=== PATIENT | female | born 1965 | race Hispanic/Latino ===

== ENCOUNTER 2021-09-18 15:16 | Emergency (ER) | payer BC ==
--- OUTSIDE RECORDS SUMMARY | 2021-09-18 15:20 | XMS REPORT | Continuity of Care Document ---
:1965 Author Organization [facility] t Address [facility] [place] [address] Care Team Providers Name Role Phone PCP, DOES NOT HAVE A Primary Care Physician Unavailable MIGUEL Attending Clinician Unavailable MIGUEL Attending Clinician Unavailable EDEMEREBECCANG Attending Clinician Unavailable Only, Db Test Attending Clinician Unavailable William PARISI Attending Clinician WILLIAM Attending Clinician Unavailable Doctor Unassigned, Name Attending Clinician Unavailable Alessandra_Deborah Attending Clinician Unavailable Lab, Fam Pob I Attending Clinician Unavailable Anene CYBER SECURITY INSTRUCTOR Attending Clinician ANENE Attending Clinician Unavailable Shield Attending Clinician Unavailable Prabhjot Admitting Clinician Unavailable Shield Admitting Clinician Unavailable Payers Payer Name Policy Type Policy Number Effective Date Expiration Date S ource [facility] - [id number] 2021 00:00:00 OUT OF STATE [employer] - CHOICE [id number] 2012 00:00:00 (POS II) Problems Condition Condition Condition Status Onset Resolution Last Treating Co mments Source Name Details Category Date Date Treatment Clinician Date Type 2 Type 2 Problem Active 2016-03 [place] diabetes Diabetes 1-16 da mellitus Mellitus 00:00: Medica l without without 00 Group complicati Complicati on on Elevated Elevated Disease Active Unive rs ferritin ferritin 6-15 ity of 00:00: [address] Elevated Elevated Disease Active Unive rs TSH TSH 6-15 ity of 00:00: [address] Elevated Elevated Disease Active Unive rs serum GGT serum GGT 6-15 ity of level level 00:00: Medical Branch Fatty Fatty Disease Active Univers liver liver 6-15 ity of 00:00: Medical Branch Numbness Numbness Disease Active Unive rs 6-12 ity of 00:00: Medical Branch Pain of Pain of Disease Active Univers right right 6-12 ity of upper upper 00:00: [place] extremity extremity 00 Medi kenna Branch Elevated Elevated Disease Active Unive rs liver liver 6-12 ity of enzymes enzymes 00:00: [place] [facility] Elevated Elevated Disease Active Unive rs BP BP 6-12 ity of 00:00: Medical Branch Decreased Decreased Disease Active Uni vers strength strength 6-12 ity of 00:00: [place] [facility] Obesity Obesity Disease Active Univers (BMI (BMI 6-09 ity of 30-39.9) 30-39.9) 00:00: [place] [facility] Viral Viral Problem Active [place] myalgia [facility] Overweight Overweight Problem Active M [facility] Acute Acute Problem Active [place] sinusitis Sinusitis [facility] Tracheopha Tracheopha Problem Active M [facility] ryngitis ryngitis [facility] Upper Upper Problem Active [place] respirator Respirator da y y Medical infection Infection Grou p Congestive Congestive Problem Active M [facility] non-allerg Non-allerg da ic ic Medical rhinitis Rhinitis Group Allergic Allergic Problem Active [place] [facility] rhinitis Rhinitis [facility] Stomatitis Stomatitis Problem Active [facility] Wrist Wrist Problem Active [place] joint pain [facility] Multiple Multiple Problem Active [place] [facility] joint pain [facility] Allergies, Adverse Reactions, Alerts Allergy Allergy Status Severity Reaction(s) Onset Inactive Treating Comm ents Source Name Type Date Date Clinician NO KNOWN Drug Active Univers ALLERGIE Class ity of S [place] [facility] Social History Social Habit Start Date Stop Date Quantity Comments Source History SDOH University o f Alcohol Frequency [place] M ed[facility] History SDOH University o f Alcohol Std [place] [facility] Drinks Branch History SDOH University o f Alcohol Binge [place] [facility] Exposure to Yes University of SARS-CoV-2 [place] [facility] (event) Branch Alcohol intake 2016-09-11 2016-09-11 Current drinker Unive rsity of 00:00:00 00:00:00 of alcohol [place] [facility] (finding) Branch Tobacco use and 2016-09-08 2016-09-08 Never used Universit y of exposure 00:00:00 00:00:[address] [facility] Alcohol Comment 2016-09-08 2016-09-08 social Universit y of 00:00:00 00:00:[address] [facility] Sex [birth year] At [birth year] Universit y of 00:00:00 00:00:[address] [facility] Smoking Status Start Date Stop Date Source Former Smoker [facility] Never smoker [facility] Medications Ordered Filled Start Stop Current Ordering Indication Dosage Frequency Signature Comments Components Source Medication Medication Date Date Medication? Clinician (SIG) Name Name fexofenadin Yes [id number] 180mg Take 1 Univers e 180 mg 2-01 tablet by ity of tablet 00:00: mouth 2 (two) Medical times Branch daily. benzonatate Yes [id number] 200mg Take 1 Univers 200 mg 2-01 capsule by ity of capsule 00:00: mouth 3 [place] (three) Medical times Branch daily as needed for Cough. fexofenadin Yes [id number] 180mg Take 1 Univers e 180 mg 2-01 tablet by ity of tablet 00:00: mouth 2 (two) Medical times Branch daily. benzonatate Yes [id number] 200mg Take 1 Univers 200 mg 2-01 capsule by ity of capsule 00:00: mouth 3 [place] (three) Medical times Branch daily as needed for Cough. fexofenadin Yes [id number] 180mg Take 1 Univers e 180 mg 2-01 tablet by ity of tablet 00:00: mouth 2 (two) Medical times Branch daily. benzonatate Yes [id number] 200mg Take 1 Univers 200 mg 2-01 capsule by ity of capsule 00:00: mouth 3 (three) Medical times Branch daily as needed for Cough. fexofenadin Yes [id number] 180mg Take 1 Univers e 180 mg 2-01 tablet by ity of tablet 00:00: mouth 2 [place] (two) Medical times Branch daily. benzonatate Yes [id number] 200mg Take 1 Univers 200 mg 2-01 capsule by ity of capsule 00:00: mouth 3 [place] 00 (three) Medical times Branch daily as needed for Cough. traZODONE Yes 50mg 50 mg. Univer s 50 mg 1-16 Take 1-2 ity of tablet 20:10: tablets [place] 16 PRN Medical insomnia Branch traZODONE 2019-0 Yes 50mg 50 mg. Univer s 50 mg 1-16 Take 1-2 ity of tablet 14:10: tablets [place] 16 PRN Medical insomnia Branch traZODONE 2018-0 Yes 50mg 50 mg. Univer s 50 mg 1-16 Take 1-2 ity of tablet 14:10: tablets [place] 16 PRN Medical insomnia Branch traZODONE 0 Yes 50mg 50 mg. Univer s 50 mg 1-16 Take 1-2 ity of tablet 14:10: tablets [place] 16 PRN Medical insomnia Branch fluticasone Yes [id number] 1{spray Use 1 Univers 50 1-16 } [place] in ity of mcg/actuati 00:00: each [place] on nasal 00 nostril 2 Medica l spray (two) Branch times daily. benzonatate Yes [id number] 100mg Take 1 Univers (TESSALON 1-16 capsule by ity of PERLES) 100 00:00: mouth 3 [place] as mg capsule 00 (three) Medica l times Branch daily. naproxen Yes [id number] 500mg Take 1 Un jayro 500 mg 1-16 tablet by ity of tablet 00:00: mouth 2 [place] [address] (two) Medical times Branch daily with meals. fluticasone Yes [id number] 1{spray Use 1 Univers 50 1-16 } [place] in ity of mcg/actuati 00:00: each [place] on nasal 00 nostril 2 Medica l spray (two) Branch times daily. benzonatate 2018- Yes [id number] 100mg Take 1 Univers (TESSALON 1-16 capsule by ity of PERLES) 100 00:00: mouth 3 [place] as mg capsule 00 (three) Medica l times Branch daily. naproxen Yes [id number] 500mg Take 1 Un jayro 500 mg 1-16 tablet by ity of tablet 00:00: mouth 2 [place] 00 (two) Medical times Branch daily with meals. fluticasone 2019-0 Yes [id number] 1{spray Use 1 Univers 50 1-16 } [place] in ity of mcg/actuati 00:00: each [place] on nasal 00 nostril 2 Medica l spray (two) Branch times daily. benzonatate 2019-0 Yes [id number] 100mg Take 1 Univers (TESSALON 1-16 capsule by ity of PERLES) 100 00:00: mouth 3 [place] as mg capsule 00 (three) Medica l times Branch daily. naproxen 2019-0 Yes [id number] 500mg Take 1 Un jayro 500 mg 1-16 tablet by ity of tablet 00:00: mouth 2 [place] (two) Medical times Branch daily with meals. fluticasone 2019-0 Yes [id number] 1{spray Use 1 Univers 50 1-16 } [place] in ity of mcg/actuati 00:00: each [place] on nasal 00 nostril 2 Medica l spray (two) Branch times daily. benzonatate 2019-0 Yes [id number] 100mg Take 1 Univers (TESSALON 1-16 capsule by ity of PERLES) 100 00:00: mouth 3 [place] as mg capsule 00 (three) Medica l times Branch daily. naproxen 2019-0 Yes [id number] 500mg Take 1 Un jayro 500 mg 1-16 tablet by ity of tablet 00:00: mouth 2 [place] (two) Medical times Branch daily with meals. DULoxetine 2019-0 Yes 60mg Take 60 mg U nivers 60 mg 1-12 by mouth ity of capsule 00:00: daily. [place] [address] Medical Branch DULoxetine 2019-0 Yes 60mg Take 60 mg U nivers 60 mg 1-12 by mouth ity of capsule 00:00: daily. [place] [facility] DULoxetine 2019-0 Yes 60mg Take 60 mg U nivers 60 mg 1-12 by mouth ity of capsule 00:00: daily. [place] [address] Medical Branch DULoxetine 2019-0 Yes 60mg Take 60 mg U nivers 60 mg 1-12 by mouth ity of capsule 00:00: daily. [place] [address] Medical Branch metformin 2019-0 Yes 500mg Take 500 Uni vers ER 500 mg 1-07 mg by ity of 24 hr 00:00: mouth [place] tablet 00 daily. Medical Branch lisinopril 2019-0 Yes 20mg Take 20 mg U nivers 20 mg 1-07 by mouth ity of tablet 00:00: daily. Medical Branch levothyroxi Yes 50ug Take 50 Uni vers ne 50 mcg 1-07 mcg by ity of tablet 00:00: mouth [place] 00 every Medical morning. Branch metformin Yes 500mg Take 500 Uni vers ER 500 mg 1-07 mg by ity of 24 hr 00:00: mouth [place] tablet 00 daily. Medical Branch lisinopril Yes 20mg Take 20 mg U nivers 20 mg 1-07 by mouth ity of tablet 00:00: daily. [place] 00 Medical Branch levothyroxi Yes 50ug Take 50 Uni vers ne 50 mcg 1-07 mcg by ity of tablet 00:00: mouth [place] 00 every Medical morning. Branch metformin Yes 500mg Take 500 Uni vers ER 500 mg 1-07 mg by ity of 24 hr 00:00: mouth [place] tablet 00 daily. Medical Branch lisinopril Yes 20mg Take 20 mg U nivers 20 mg 1-07 by mouth ity of tablet 00:00: daily. [place] [facility] levothyroxi Yes 50ug Take 50 Uni vers ne 50 mcg 1-07 mcg by ity of tablet 00:00: mouth [place] 00 every Medical morning. Branch metformin Yes 500mg Take 500 Uni vers ER 500 mg 1-07 mg by ity of 24 hr 00:00: mouth [place] tablet 00 daily. Medical Branch lisinopril Yes 20mg Take 20 mg U nivers 20 mg 1-07 by mouth ity of tablet 00:00: daily. [place] [facility] levothyroxi Yes 50ug Take 50 Uni vers ne 50 mcg 1-07 mcg by ity of tablet 00:00: mouth [place] 00 every Medical morning. Branch atorvastati 2017-03 Yes 10mg Take 10 mg Univers n 10 mg 1-03 by mouth ity of tablet 00:00: at [place] 00 bedtime. Medical Branch atorvastati 2017-03 Yes 10mg Take 10 mg Univers n 10 mg 1-03 by mouth ity of tablet 00:00: at [place] 00 bedtime. Medical Branch atorvastati 2017-03 Yes 10mg Take 10 mg Univers n 10 mg 1-03 by mouth ity of tablet 00:00: at [place] 00 bedtime. Medical Branch atorvastati 2018-1 Yes 10mg Take 10 mg Univers n 10 mg 1-03 by mouth ity of tablet 00:00: at [place] 00 bedtime. Medical Branch ibuprofen 2017-0 Yes 400mg Take 2 Unive rs (MOTRIN IB) 6-09 tablets by it y of 200 mg 00:00: mouth [place] tablet 00 every 6 Medical (six) Branch hours as needed for Pain (scale 1-3) for up to 30 doses. cyclobenzap 2017-0 Yes 10mg Take 1 Univ ers rine 10 mg 6-09 tablet by ity of tablet 00:00: mouth 2 [place] 00 (two) Medical times Branch daily as needed for Muscle Spasms for up to 10 doses. ibuprofen 2017-0 Yes 400mg Take 2 Unive rs (MOTRIN IB) 6-09 tablets by it y of 200 mg 00:00: mouth [place] tablet 00 every 6 Medical (six) Branch hours as needed for Pain (scale 1-3) for up to 30 doses. cyclobenzap 2017-0 Yes 10mg Take 1 Univ ers rine 10 mg 6-09 tablet by ity of tablet 00:00: mouth 2 [place] 00 (two) Medical times Branch daily as needed for Muscle Spasms for up to 10 doses. ibuprofen 2017-0 Yes 400mg Take 2 Unive rs (MOTRIN IB) 6-09 tablets by it y of 200 mg 00:00: mouth [place] tablet 00 every 6 Medical (six) Branch hours as needed for Pain (scale 1-3) for up to 30 doses. cyclobenzap 2017-0 Yes 10mg Take 1 Univ ers rine 10 mg 6-09 tablet by ity of tablet 00:00: mouth 2 [place] 00 (two) Medical times Branch daily as needed for Muscle Spasms for up to 10 doses. ibuprofen 2017-0 Yes 400mg Take 2 Unive rs (MOTRIN IB) 6-09 tablets by it y of 200 mg 00:00: mouth [place] tablet 00 every 6 Medical (six) Branch hours as needed for Pain (scale 1-3) for up to 30 doses. cyclobenzap 2017-0 Yes 10mg Take 1 Univ ers rine 10 mg 6-09 tablet by ity of tablet 00:00: mouth 2 [place] 00 (two) Medical times Branch daily as needed for Muscle Spasms for up to 10 doses. Amitiza 24 Amitiza 24 No 1capsul BID Amitiza 24 [place] mcg capsule mcg capsule e(s) mcg d a Take 1 Take 1 capsule Medical capsule capsule Take 1 Group twice a day twice a day capsule by oral by oral twice a route. route. day by oral route. atorvastati atorvastati No atorvastat [place] n 10 mg n 10 mg in 10 mg da tablet TAKE tablet TAKE tablet Medical 1 TABLET BY 1 TABLET BY TAKE 1 Group MOUTH ONCE MOUTH ONCE TABLET BY DAILY DAILY MOUTH ONCE DAILY atorvastati atorvastati No atorvastat [place] n calcium n calcium in calcium da 10 mg tabs 10 mg tabs 10 mg tabs Medical Group Bactrim DS Bactrim DS No 1 Q12H Bactrim DS [place] 800 mg-160 800 mg-160 800 mg-160 da mg tablet mg tablet mg tablet Medical Take 1 Take 1 Take 1 Group tablet tablet tablet every 12 every 12 every 12 hours by hours by hours by oral route oral route oral route for 10 for 10 for 10 days. days. days. duloxetine duloxetine No duloxetine [place] 60 mg 60 mg 60 mg da capsule,del capsule,del capsule,de Medical ayed ayed layed Group release release release Take 1 Take 1 Take 1 capsule capsule capsule every day every day every day by oral by oral by oral route. route. route. fluconazole fluconazole No fluconazol [place] 150 mg tabs 150 mg tabs e 150 mg da tabs Medical Group IBU 800 mg IBU 800 mg No 1 TID IBU 800 mg [place] tablet Take tablet Take tablet da 1 tablet 3 1 tablet 3 Take 1 M edical times a day times a day tablet 3 Group by oral by oral times a route for route for day by 10 days. 10 days. oral route for 10 days. Keflex 500 Keflex 500 No 1capsul Q6H Keflex 500 [place] mg capsule mg capsule e(s) mg capsule da Take 1 Take 1 Take 1 Medical capsule capsule capsule Group every 6 every 6 every 6 hours by hours by hours by oral route oral route oral route for 7 days. for 7 days. for 7 days. levothyroxi levothyroxi No levothyrox [place] ne 50 mcg ne 50 mcg ine 50 mcg da tablet TAKE tablet TAKE tablet Medical 1 TABLET BY 1 TABLET BY TAKE 1 Group MOUTH ONCE MOUTH ONCE TABLET BY DAILY DAILY MOUTH ONCE DAILY levothyroxi levothyroxi No levothyrox [place] ne sodium ne sodium ine sodium da 50 mcg tabs 50 mcg tabs 50 mcg Medical tabs Group losartan losartan No losartan [place] 100 mg 100 mg 100 mg da tablet Take tablet Take tablet Medical 1 tablet by 1 tablet by Take 1 Group mouth once mouth once tablet by daily daily mouth once daily Lotemax SM Lotemax SM No Lotemax SM [place] 0.38 % eye 0.38 % eye 0.38 % eye da gel drops gel drops gel drops Medical Group metformin metformin No metformin [place] ER 500 mg ER 500 mg ER 500 mg da tablet,exte tablet,exte tablet,ext Medical nded nded ended Group release 24 release 24 release 24 hr TAKE 2 hr TAKE 2 hr TAKE 2 TABLETS BY TABLETS BY TABLETS BY MOUTH ONCE MOUTH ONCE MOUTH ONCE DAILY DAILY DAILY naproxen naproxen No naproxen [place] 500 mg tabs 500 mg tabs 500 mg da tabs Medical Group sertraline sertraline No sertraline [place] 50 mg 50 mg 50 mg da tablet Take tablet Take tablet Medical 1 tablet 1 tablet Take 1 Group every day every day tablet by oral by oral every day route. route. by oral route. sertraline sertraline No sertraline [place] hcl 50 mg hcl 50 mg hcl 50 mg da tabs tabs tabs Medical Group Immunizations Ordered Immunization Filled Immunization Date Status Commen ts Source Name Name influenza, influenza, 2018-12-10 Completed [facility] injectable, injectable, 00:00:00 Medical Grou p quadrivalent quadrivalent Vital Signs Vital Name Observation Time Observation Value Comments Source BP Diastolic 2019-08-05 00:00:00 90 mm[Hg] [facility] Height 2019-08-05 00:00:00 63 [in_i] [facility] BMI (Body Mass 2019-08-05 00:00:00 31 kg/m2 [facility] Medical Index) Group BP Systolic 2019-08-05 00:00:00 142 mm[Hg] [facility] Body Weight 2019-08-05 00:00:00 2801.6 [oz_av] [facility] BP Diastolic 2019-04-05 00:00:00 98 mm[Hg] [facility] Height 2019-04-05 00:00:00 63 [in_i] [facility] BMI (Body Mass 2019-04-05 00:00:00 30[facility]8 [facility] BP Systolic 2019-04-05 00:00:00 150 mm[Hg] [facility] Body Weight 2019-04-05 00:00:00 2784 [oz_av] [facility] BP Diastolic 2019-02-28 00:00:00 94 mm[Hg] [facility] Height 2019-02-28 00:00:00 63 [in_i] [facility] BMI (Body Mass 2019-02-28 00:00:00 27.1 kg/m2 [facility] director of culture Medical Index) Group BP Systolic 2019-02-28 00:00:00 152 mm[Hg] [facility] Body Weight 2019-02-28 00:00:00 2450 [oz_av] [facility] BP Diastolic 2018-07-19 00:00:00 80 mm[Hg] [facility] Height 2018-07-19 00:00:00 63 [in_i] [facility] BMI (Body Mass 2018-07-19 00:00:00 30.2 kg/m2 [facility] director of culture Medical Index) Group BP Systolic 2018-07-19 00:00:00 140 mm[Hg] [facility] Body Weight 2018-07-19 00:00:00 2729.6 [oz_av] [facility] Procedures Procedure Date / Time Performing Clinician Source Performed ASSIGNMENT OF BENEFITS 2021-04-28 22:52:49 Doctor Unassigned, No [facility] unlisted imaging order 2019-04-05 00:00:00 [facility] Hysterectomy 2008-03-30 00:00:00 [facility] Tubal Ligation 1989-03-30 00:00:00 [facility] Cholecystectomy [facility] Tonsillectomy [facility] Plan of Care Planned Activity Planned Date Details Comments Source Diagnostic Test Pending 2019-08-05 culture, wound [facility] 00:00:00 [code = culture, Group wound] Instructions [facility] Encounters Start End Encounter Admission Attending Care Care Encounter Source Date/Time Date/Time Type Type Clinicians Facility Department ID 2021-09-20 2021-09-20 Outpatient R MARK RIVERA [facility] [id number] Univers 14:00:00 14:00:00 MARK RIVERA 220 [id number] [facility] 2021-09-20 2021-09-20 Outpatient R MARK RIVERA [facility] [id number] Univers 14:00:00 14:00:00 MARK RIVERA [facility] 2021-09-04 2021-09-04 Outpatient R HUIBHARATHEMILIANA [facility] [id number] Univers 14:00:00 14:00:00 MARINA [id number] [facility] 2021-09-04 2021-09-04 Outpatient R LIYAH [facility] [id number] Univers 14:00:00 14:00:00 MARINA [facility] 2021-08-07 2021-08-07 [id number] Univers 14:00:00 14:00:00 MARINA [id number] [facility] 2021-08-07 2021-08-07 Out[facility] [id number] Univers 14:00:00 14:00:00 MARINA [facility] 2021-07-15 2021-07-15 Outpatient R MARK RIVERA [facility] [id number] Univers 13:00:00 13:00:00 [facility]-07-[facility] 2021-07-15 Outpatient R MARK RIVERA [facility] [id number] Univers 13:00:00 13:00:00 [facility] 2021-04-29 2021-04-29 Telephone Only, [facility] [id number] Univers 00:00:00 00:00:00 Db Test HEALTH 350.1.13.10 it y of [place] 4.2.7.2.686 Tashi as DOROTEO?BLEA [phone] [facility] MOREIRA [address] [facility] 2021-04-28 2021-04-28 Laboratory Only, Ang Db Test [facility] 1.2.8 40.114 [id number] Univers 17:30:00 17:45:00 Only Tyler Thomas [facility] 350.1.1 3.10 ity of [place] 4.2.7.2.686 Tashi as DOROTEO?BLEA [phone] Il dicjose angel FAYE [address] [facility] OFFICE BUILDING 2021-04-28 2021-04-28 Outpatient R BATOOL [facility] [id number] Univers 17:30:00 17:37:07 TYLER Marrero it y of [facility] 2021-04-28 2021-04-28 Outpatient R [facility] [id number] Univers 17:30:00 17:30:[id number] [facility] 2021-04-28 2021-04-28 Orders Doctor ELMER [id number] Univers 00:00:00 00:00:00 Only Unassigned, ABUNDIO 350.1.13.10 [facility] 4.2.7.2.686 Tashi as [phone] [address] 2020-02-15 2020-02-15 Outpatient Alessandra_M [facility] [id number] [place] 02:25:00 02:25:00 118 [facility] Medical Group 2019-11-25 2019-11-25 Laboratory Lab, Adc Fam Pob I [facility] 1.2. [id number] [id number] Univers 13:18:55 13:38:55 Only Paz Cintron Whistle 350.1.13.10 ity of [place] 4.2.7.2.686 Tashi as Professio [phone] [place] kenna [address] Office Building One 2019-11-25 2019-11-25 Outpatient R [facility] [id number] Univers 13:00:00 13:00:[id number] [facility] 2019-11-25 2019-11-25 Outpatient R MINDI, [facility] [id number] Univers 13:00:00 13:00:00 PAZ leon of [facility] 2019-08-06 2019-08-06 Outpatient Hawkins_M MMG [facility]G [id number] [place] 02:53:00 02:53:00 509 [facility] 2019-08-05 2019-08-05 Outpatient Hawkins_M MMG MMG [id number] [place] 02:31:00 02:31:00 508 Medical Group 2019-08-05 2019-08-05 Daniela MMG [place] - [id number] M atagor 00:00:00 00:00:00 Disha Irene [facility] Medical CALL CENTER PROFESSIONAL: [address] [address] , Ph. 2019-04-05 2019-04-05 Outpatient Shield MMG MMG [id number] [place] 10:58:00 10:58:00 107 Medical Group 2019-04-05 2019-04-05 Lucrecia MMG [place] - [id number] M atagor 00:00:00 00:00:00 Discovery Mago da CALL CENTER PROFESSIONAL: [address] [facility] [address] [address] , Ph. 2019-03-12 2019-03-12 Outpatient Shield MMG MMG [id number] [place] 03:27:00 03:27:00 106 marlen [facility] 2019-02-28 2019-02-28 Lucrecia MMG [place] - [id number] M atagor 00:00:00 00:00:00 [facility] da CALL CENTER PROFESSIONAL: [address] [facility] [address], [facility] [address] , Ph. 2018-07-19 2018-07-19 Lucrecia MMG [place] - [id number] M atagor 00:00:00 00:00:00 [facility] da CALL CENTER PROFESSIONAL: [address] [facility] [address], [facility] [address] , Ph. Results Test Description Test Time Test Comments Results Result Comments Source Urinalysis macro (dipstick) panel - Urine 2019-04-05 14:24:0 0 Test Item Value Reference Range Interpretation Comme nts Leukocytes (test code = Leukocytes) Negative Nitrite (test code = Nitrite) negative Urobilinogen (test code = Urobilinogen) .2 Protein (test code = Protein) Negative pH (test code = pH) 5.5 Blood (test code = Blood) Hemolyzed: Trace Specific [place] (test code = Specific [place]) 1.020 Ketone (test code = Ketone) Negative Bilirubin (test code = Bilirubin) Negative Glucose (test code = Glucose) 500 Appearance (test code = Appearance) Clear Color (test code = Color) Yellow [facility]
[2021-09-18 15:47] LABS: Absolute Lymphocytes (CBC) 3.3 K/uL (0.7-4.9); Hematocrit 46.4 % (36.0-45.0); Lymphocytes % 27.9 % (15.3-44.8); MPV 9.2 fL (7.6-11.3); RBC Red Blood Cell Count 5.39 M/uL (3.86-4.86)
[2021-09-18] MEDS ORDERED: dexAMETHasone 10 MG/ML VIAL ONE (15:48)
[2021-09-18] MEDS ORDERED: MEPERIDINE HCL 25 MG/ML SYR ONE ×2 (15:49→19:21)
[2021-09-18 15:59] LABS: Potassium 3.8 mmol/L (3.5-5.1)
--- NOTE | 2021-09-18 19:39 | RAD REPORT ---
EXAM DESCRIPTION: MRI - C Spine Wo Cont - 09/18/2021 7:25 pm CLINICAL HISTORY: left arm weakness after injury COMPARISON: No comparisonsThoracic Spine Wo Contr dated 09/18/2021 TECHNIQUE: Sagittal T1-weighted, T2-weighted and T2-STIR sequences were obtained as well as axial T2 medic sequence obtained. FINDINGS: Cervical vertebral bodies are normal in height and alignment. No suspicious marrow edema o r marrow replacing process. Cerebellar tonsils and mid-line skull base show no suspicious finding. No significant finding at the C1 and C2 levels. Borderline congenital spinal stenosis. This results in diffuse narrowing of the canal down to C7-T1. C2-3 level: No significant findings. C3-4 level: Mild uncovertebral joint hypertrophy and small posterior disc osteophyte complex results in mild bilateral neural foraminal narrowing. Mild central spinal stenosis. C4-5 level: Mild uncovertebral joint hypertrophy and small posterior disc osteophyte complex results in mild to moderate right greater than left neural foraminal narrowing. C5-6 level: Uncovertebral joint hypertrophy with posterior disc osteophyte complex and a left foramin al disc results and compression of the exiting nerve root. Mild right neural foraminal narrowing. Mil d central spinal stenosis including left lateral recess stenosis. C6-C7 level: Mild uncovertebral joint hypertrophy and posterior disc osteophyte complex results in mo derate to severe right and moderate left neural foraminal narrowing. Mild central spinal stenosis. C7-T1 level: No significant findings. Cervical cord shows no focal narrowing, expansion or signal abnormality. IMPRESSION: Multilevel cervical spondylosis. There is an element of congenital spinal stenosis with reduced AP diameter of the central canal. The patient's left-sided radiculopathy is most likely relat ed to a foraminal disc protrusion at C5-6 on the left. Other findings as noted above including varyin g degrees of bilateral neural foraminal narrowing.
--- NOTE | 2021-09-18 19:41 | RAD REPORT ---
EXAM DESCRIPTION: MRI - Thoracic Spine Wo Contr - 09/18/2021 7:27 pm CLINICAL HISTORY: left arm weakness after injury COMPARISON: No comparisons FINDINGS: The vertebral body heights and disc spaces are maintained. Marrow pattern of the thoracic spine is within normal limits. Small central disc protrusion at T3-4 without significant central spinal stenosis. No paraspinal mass or hematoma. The thoracic cord is normal in size and signal. IMPRESSION: No evidence of clinically significant central spinal stenosis or other acute finding sanjay ntified in the thoracic spine.
--- NOTE | 2021-09-18 20:03 | ER ---
Nurse's Notes [facility] Name: Gina Meek Age: 55 yrs Sex: Female : 1965 Arrival Date: 09/18/2021 Time: 15:19 Bed 19 Private MD: Milan Azevedo R Diagnosis: Strain of muscle and tendon of back wall of thorax;Strain of muscle, fascia and tendon at neck level, initial encounter;Spondylolysis, cervical region;Cervical disc disorder with [id number] LEFT SIDED DISC HERNIATION Presentation: 09/18 15:30 Chief complaint: Patient states: Attempted to catch grandson that was jumping on bed on ss 09/08 and began having L sided neck pain that radiates down L arm the next day. Pt also reports some numbness to L thumb. Coronavirus screen: Client denies travel out of the [place] in the last 14 days. Ebola Screen: Patient denies exposure to infectious person. Patient denies travel to an Ebola-affected area in the 21 days before illness onset. Initial Sepsis Screen: Does the patient meet any 2 criteria? No. Patient's initial sepsis screen is negative. Does the patient have a suspected source of infection? No. Patient's initial sepsis screen is negative. Risk Assessment: Do you want to hurt yourself or someone else? Patient reports no desire to harm self or others. Onset of symptoms was September 08, 2021. 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 - Social history:: Smoking status: Patient denies any tobacco usage or history of. - Family history:: not pertinent. - Hospitalizations: : No recent hospitalization is reported. Screenin:50 Abuse screen: Denies threats or abuse. Denies injuries from another. Nutritional jh6 screening: No deficits noted. Tuberculosis screening: No symptoms or risk factors identified. Fall Risk IV access (20 points). Gait- Weak (10 pts.). Assessment: 15:49 General: Appears uncomfortable, Behavior is cooperative, crying. Pain: Complains of jh6 pain in anterior aspect of left shoulder, left bicep, dorsal aspect of left forearm and left hand Pain currently is 8 out of 10 on a pain scale. Quality of pain is described as sharp, shooting, Pain began suddenly, x 1wk ago. 19:39 General: Appears in no apparent distress. Behavior is calm, cooperative. kd3 Vital Signs: 15:30 BP 169 / 89; Pulse 115; Resp 20; Temp 98.6(TE); Pulse Ox 100% on R/A; Weight 77.11 kg; ss Height 5 ft. 3 in. (160.02 cm); Pain 8/10; 19:39 BP 150 / 87; Pulse 102; Resp 18; Pulse Ox 96% on R/A; kd3 15:30 Body Mass Index 30.11 (77.11 kg, 160.02 cm) ED Course: 15:19 Patient arrived in ED. mr 15:19 Milan Azevedo MD is Private Physician. mr 15:20 Renny Alexandre MD is Attending Physician. rn 15:20 Ella Cobb, WAYNE is Primary Nurse. jh6 15:35 Triage completed. ss 15:35 Arm band placed on left wrist. ss 15:40 Inserted saline lock: 20 gauge in right antecubital area, using aseptic technique. jh6 Blood collected. 15:50 Bed in low position. Call light in reach. Side rails up X 1. jh6 19:08 Attending Physician role handed off by Renny Alexandre MD ricardo 19:08 Michael Solo MD is Attending Physician. ricardo 19:26 C Spine Wo Cont In Process Unspecified. EDMS 19:26 Thoracic Spine Wo Contr In Process Unspecified. EDMS 20:01 Milan Azevedo MD is Referral Physician. ricardo 20:01 Jeffery Shepherd MD is Referral Physician. ricardo 20:06 Donte Aviles MD is Referral Physician. ricardo 20:28 Primary Nurse role handed off by Ella Cobb, WAYNE as6 20:30 Lisa Bhat, WAYNE is Primary Nurse. kd3 20:30 No provider procedures requiring assistance completed. IV discontinued, intact, kd3 bleeding controlled, No redness/swelling at site. Pressure dressing applied. 20:31 No provider procedures requiring assistance completed. IV discontinued, intact, vc1 bleeding controlled, No redness/swelling at site. Pressure dressing applied. Administered Medications: 15:46 Drug: Decadron - Dexamethasone 10 mg Route: IVP; Site: right antecubital; jh6 16:49 Follow up: Response: No adverse reaction 6 15:47 Drug: Demerol (meperidine) 12.5 mg Route: IVP; Site: right antecubital; jh6 16:49 Follow up: Response: Pain is decreased jh6 19:39 Drug: Demerol (meperidine) 12.5 mg Route: IVP; Site: right antecubital; kd3 20:31 Follow up: Response: No adverse reaction kd3 20:30 Drug: [place] (HYDROcodone-acetaminophen) 10 mg-325 mg 1 tabs Route: PO; vc1 20:30 Follow up: Response: No adverse reaction; Medication administered at discharge. vc1 20:31 Follow up: Response: No adverse reaction kd3 Medication: 15:51 VIS not applicable for this client. 6 Outcome: 20:03 Discharge ordered by MD. silva 20:30 Discharged to home ambulatory. kd3 20:30 Condition: stable 20:30 Discharge instructions given to patient, family, Instructed on discharge instructions, follow up and referral plans. Demonstrated understanding of instructions, follow-up care. 20:31 Patient left the ED. kd3 Signatures: Dispatcher [employer] EDMichael Gerardo MD MD cha Rivera, Mary Renny Alexandre MD MD rn Smirch, Shelby, RN RN ss Slawson, Ashby, RN RN as6 Doucette, Kyli, RN RN 3 Ella Cobb RN RN jh6 Karina Palomo RN RN vc1
--- NOTE | 2021-09-18 20:03 | EDPHYS ---
Physician Documentation [facility] Name: Gina Meek Age: 55 yrs Sex: Female : 1965 Arrival Date: 09/18/2021 Time: 15:19 Bed 19 Private MD: Milan Azevedo R ED Physician Michael Solo HPI: 09/18 17:14 This 55 yrs old Female presents to ER via Ambulatory with complaints of neck rn pain/injury. 17:14 The patient or guardian complains of an injury, pain. The symptoms are located on the rn cervical and mid thoracic spine. 17:14 Onset: The symptoms/episode began/occurred 1 week(s) ago. Context: The problem was rn sustained at home. Associated signs and symptoms: Pertinent positives: tingling, weakness, Pertinent negatives: fever. The pain radiates to the right arm and left arm. Modifying factors: The symptoms are alleviated by nothing. the symptoms are aggravated by movement. Severity of symptoms: At their worst the symptoms were moderate, in the emergency department the symptoms are unchanged. The patient has not experienced similar symptoms in the past. Pt reports grandson jumping on bed 1 week ago, he seemed like was going to fall off bed, she twisted and caught him, did not feel immediate discomfort, but next day began to have upper back and neck pain with assoc tingling in both arms, and now feels weakness in left hand. . 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 - Social history:: Smoking status: Patient denies any tobacco usage or history of. - Family history:: not pertinent. - Hospitalizations: : No recent hospitalization is reported. ROS: 17:14 Constitutional: Negative for fever, chills, and weight loss, Eyes: Negative for injury, rn pain, redness, and discharge, Neck: + neck injury and pain Cardiovascular: Negative for chest pain, palpitations, and edema, Respiratory: Negative for shortness of breath, cough, wheezing, and pleuritic chest pain, Abdomen/GI: Negative for abdominal pain, nausea, vomiting, diarrhea, and constipation, Back: Negative for injury and pain, MS/Extremity: Negative for injury and deformity, Skin: Negative for injury, rash, and discoloration, Neuro: Negative for headache, and seizure. Exam: 17:14 Constitutional: This is a well developed, well nourished patient who is awake, alert, rn and in no acute distress. Head/Face: Normocephalic, atraumatic. Eyes: Pupils equal round and reactive to light, extra-ocular motions intact. Lids and lashes normal. Conjunctiva and sclera are non-icteric and not injected. Cornea within normal limits. Periorbital areas with no swelling, redness, or edema. Neck: + paracervical tenderness and tenderness along upper thoracic spine without gross deformity. Cardiovascular: Tachycardic, regular. No pulse deficits. Respiratory: No increased work of breathing, no retractions or nasal flaring. Abdomen/GI: Soft, non-tender Skin: Warm, dry MS/ Extremity: Pulses equal, no cyanosis. Full, normal range of motion. Neuro: Awake and alert, GCS 15, oriented to person, place, time, and situation. Cranial nerves II-XII grossly intact. + slightly weak left entry level marketing representative strength compared to right. Sensory grossly intact. Cerebellar exam normal. Normal gait. Vital Signs: 15:30 BP 169 / 89; Pulse 115; Resp 20; Temp 98.6(TE); Pulse Ox 100% on R/A; Weight 77.11 kg; ss Height 5 ft. 3 in. (160.02 cm); Pain 8/10; 19:39 BP 150 / 87; Pulse 102; Resp 18; Pulse Ox 96% on R/A; kd3 15:30 Body Mass Index 30.11 (77.11 kg, 160.02 cm) MDM: 15:20 Patient medically screened. rn 19:16 Data reviewed: vital signs, nurses notes, lab test result(s), radiologic studies, MRI. ricardo Data interpreted: case monitor: rate is 115 beats/min, Pulse oximetry: on room air is 100 %. Counseling: I had a detailed discussion with the patient and/or guardian regarding: the historical points, exam findings, and any diagnostic results supporting the discharge/admit diagnosis, lab results, radiology results. 09/18 15:31 Order name: CBC with Diff; Complete Time: 16:40 rn 09/18 15:31 Order name: Basic Metabolic Panel; Complete Time: 16:40 rn 09/18 15:40 Order name: C Spine Wo Cont; Complete Time: 19:58 EDMS 09/18 15:40 Order name: Thoracic Spine Wo Contr; Complete Time: 19:58 EDMS 09/18 15:31 Order name: IV Start; Complete Time: 15:46 rn Administered Medications: 15:46 Drug: Decadron - Dexamethasone 10 mg Route: IVP; Site: right antecubital; jh6 16:49 Follow up: Response: No adverse reaction jh6 15:47 Drug: Demerol (meperidine) 12.5 mg Route: IVP; Site: right antecubital; jh6 16:49 Follow up: Response: Pain is decreased jh6 19:39 Drug: Demerol (meperidine) 12.5 mg Route: IVP; Site: right antecubital; kd3 20:31 Follow up: Response: No adverse reaction kd3 20:30 Drug: [place] (HYDROcodone-acetaminophen) 10 mg-325 mg 1 tabs Route: PO; vc1 20:30 Follow up: Response: No adverse reaction; Medication administered at discharge. vc1 20:31 Follow up: Response: No adverse reaction kd3 Disposition Summary: 09/18/21 20:03 Discharge Ordered Location: Home ricardo Problem: new ricardo Symptoms: have improved ricardo Condition: Stable ricardo Diagnosis - Strain of muscle and tendon of back wall of thorax ricardo - Strain of muscle, fascia and tendon at neck level, initial encounter ricardo - Spondylolysis, cervical region ricardo - Cervical disc disorder with radiculopathy - C5-C6 LEFT SIDED DISC HERNIATION ricardo Followup: ricardo - With: - When: 2 - 3 days - Reason: Recheck today's complaints, Continuance of care, Re-evaluation by your physician Followup: ricardo - With: - When: 2 - 3 days - Reason: Recheck today's complaints, Re-evaluation by your physician Followup: ricardo - With: Donte Aviles MD - When: 2 - 3 days - Reason: Recheck today's complaints, Re-evaluation by your physician Discharge Instructions: - Discharge Summary Sheet ricardo - Cervical Radiculopathy ricardo - Muscle Strain ricardo - Neck Contusion ricardo - Muscle Strain, [id number] ricardo - Neck Contusion, [id number] ricardo - Cervical Radiculopathy, [id number] [facility] Forms: - Medication Reconciliation Form ricardo - Thank You Letter ricardo - Antibiotic Education ricardo - Prescription Opioid Use [facility] Prescriptions: - Ibuprofen 600 mg Oral Tablet - take 1 tablet by ORAL route every 6 hours As needed take with food; 30 tablet; ricardo Refills: 0, Product Selection Permitted - Cyclobenzaprine 5 mg Oral Tablet - take 1 tablet by ORAL route 3 times per day As needed; 15 tablet; Refills: 0, [facility] Product Selection Permitted - dexamethasone 2 mg Oral tablet - take 1 tablet by ORAL route 2 times per day; 12 tablet; Refills: 0, Product ricardo Selection Permitted - Tylenol-Codeine #3 300 mg-30 mg Oral - take 2 tablet by ORAL route every 6 hours; 20 tablet; Refills: 0, Product ricardo Selection Permitted Signatures: Dispatcher [employer] Michael Rabago MD MD cha Nieto, Roman, MD MD rn Smirch, Shelby RN RN Lisa Tolliver RN RN kd3 Ella Cobb RN RN jh6 Karina Palomo RN RN vc1
[2021-09-18] MEDS ORDERED: HYDROCODONE/APAP 10/325 TAB ONE (20:30)
[2021-09-18 20:48] VITALS: TEMP 98.6
[2021-09-18 20:54] VITALS: BP 150/87; O2SAT 96
== END 2021-09-18 20:31 | disposition home or self-care (01) ==
LOC: ER 15:16
DX: S16.1XXA Strain of muscle, fascia and tendon at neck level, initial encounter (principal); S29.012A Strain of muscle and tendon of back wall of thorax, initial encounter; M43.02 Spondylolysis, cervical region; M50.122 Cervical disc disorder at C5-C6 level with radiculopathy; E11.9 Type 2 diabetes mellitus without complications; I10 Essential (primary) hypertension
CPT/HCPCS: 85025; 80048; 36415; 72141; 72146; 96375; 96374; 99284; J1100; J2175 ×2

== ENCOUNTER 2022-03-23 06:48 | Emergency (ER) | payer BC ==
--- OUTSIDE RECORDS SUMMARY | 2022-03-23 07:04 | XMS REPORT | Continuity of Care Document ---
:1965 Author Organization [facility] t Address [address] [place] [address] Care Team Providers Name Role Phone Asked, No Pcp Primary Care Physician Unavailable Kiera Kamara Attending Clinician Unavailable FRANCISCO DERAS Attending Clinician Unavailable Conrad NAYAK, Vic Clay Attending Clinician [phone] UNKNOWN, ATTENDING Attending Clinician Unavailable Berny NAYAK, Brandyn Palmer Attending Clinician MARK RIVERA Attending Clinician Unavailable MARK RIVERA Attending Clinician Unavailable MARINA PELLETIER Attending Clinician Unavailable Only, Ang Db Test Attending Clinician Unavailable Tyler Meraz Attending Clinician [phone] TYLER THOMAS Attending Clinician Unavailable Doctor Unassigned, [place] Attending Clinician Unavailable Alessandra_Deborah Attending Clinician Unavailable Lab, Adc Fam Pob I Attending Clinician Unavailable Paz Hernandez Attending Clinician PAZ CINTRON Attending Clinician Unavailable Mago Attending Clinician Unavailable Kiera Kamara Admitting Clinician Unavailable LULU HARDY Admitting Clinician Unavailable Prabhjot Admitting Clinician Unavailable Mago Admitting Clinician Unavailable Payers Payer Name Policy Type Policy Number Effective Date Expiration Date Janes [employer] [id number] 2021 B[place] 00:00:00 [employer] [place] - [id number] 2021 OUT OF STATE 00:00:00 AETNA - CHOICE [id number] 2012 (POS II) 00:00:00 Problems Condition Condition Condition Status Onset Resolution Last Treating Co mments Source Name Details Category Date Date Treatment Clinician Date Diabetes Diabetes Disease Active 2021-03 Overview: [facility] mellitus mellitus 0-10 [facility] 00:00: g of this 00 note might be different from the original. type IItype IItype II Hypertensi Hypertensi Disease Active 2021-03 U T on on 0-10 Health 00:00: 00 Hypothyroi Hypothyroi Disease Active 2021-03 U T dism dism 0-10 Health 00:00: 00 Multiple Multiple Disease Active 2021-03 UT joint pain joint pain 0-05 He alth 00:00: 00 Type 2 Type 2 Disease Active 2016-03 UT diabetes diabetes 1-16 Health mellitus mellitus 00:00: without without 00 complicati complicati on on Elevated Elevated Disease Active Unive rs ferritin ferritin 6-15 ity of 00:00: Medical Branch Elevated Elevated Disease Active Unive rs TSH TSH 6-15 ity of 00:00: Medical Branch Elevated Elevated Disease Active Unive rs serum GGT serum GGT 6-15 ity of level level 00:00: 00 Medical Branch Fatty Fatty Disease Active Univers liver liver 6-15 ity of 00:00: Medical Branch Numbness Numbness Disease Active Unive rs 6-12 ity of 00:00: Medical Branch Pain of Pain of Disease Active Univers right right 6-12 ity of upper upper 00:00: [place] extremity extremity 00 [facility] Branch Elevated Elevated Disease Active Unive rs liver liver 6-12 ity of enzymes enzymes 00:: Medical Branch Elevated Elevated Disease Active Unive rs BP BP 6-12 ity of 00:: Medical Branch Decreased Decreased Disease Active Uni vers strength strength 6-12 ity of 00:: [place] [facility] Obesity Obesity Disease Active Univers (BMI (BMI -09 ity of 30-39.9) 30-39.9) 00:00: Medical Branch Viral Viral Problem Active [facility] [...] ents Source Name Type Date Date Clinician No Known DA Active U 2021-03 [facility]20 [place] [facility] NO KNOWN Drug Active Univers ALLERGIE Class ity of S [facility] Social History Social Habit Start Date Stop Date Quantity Comments Source History SDOH University o f Alcohol Frequency [place] [facility] History SDOH University o f Alcohol Std [place] [facility] Drinks Branch History SDOH University o f Alcohol Binge [place] [facility] Exposure to 2021-12-27 2022-01-06 Not sure [facility] SARS-CoV-2 00:00:00 09:18:00 (event) Alcohol intake 2022-01-06 2022-01-06 Ex-drinker [facility] 00:00:00 00:00:00 (finding) Tobacco use and 2022-01-01 2022-01-01 Smokeless tobacco [facility] exposure 00:00:00 00:00:00 non-user Alcohol Comment 2016-09-08 2016-09-08 social Universit y of 00:00:00 00:00:00 [facility] Sex Ass[birth year] At [birth year] [facility] 00:00:00 00:00:00 Hospital Smoking Status Start Date Stop Date Source Former Smoker [facility] Tobacco smoking consumption unknown [facility] Never smoked tobacco [facility] Medications Ordered Filled Start Stop Current Ordering Indication Dosage Frequency Signature Comments Components Source Medication Medication Date Date Medication? Clinician (SIG) Name Name methocarbam 2021-03 Yes [id number] 1-2 UT ol 0-05 01 tablets po Health (Robaxin) 00:00: q 8 hours 500 MG 00 prn muscle tablet spasm methocarbam 2021-03 Yes [id number] 1-2 UT ol 0-05 01 tablets po Health (Robaxin) 00:00: q 8 hours 500 MG 00 prn muscle tablet spasm HYDROcodone 2021-03- Yes [id number] 1{tbl} Q6H Take 1 UT -acetaminop 0-05 10-11 01 tablet by Oniel oliver ([place]) 00:00: 04:59 mouth 10-325 MG 00 :00 every 6 tablet (six) hours if needed for severe pain for up to 5 days. HYDROcodone 2021-03- Yes [id number] 1{tbl} Q6H Take 1 UT -acetaminop 0-05 10-11 01 tablet by Oniel oliver ([place]) 00:00: 04:59 mouth 10-325 MG 00 :00 every 6 tablet (six) hours if needed for severe pain for up to 5 days. losartan Yes UT (Cozaar) 50 9-26 Health MG tablet 00:00: 00 atorvastati Yes UT n (Lipitor) 9-26 Health 10 MG 00:00: tablet 00 buPROPion Yes 300mg QD Take 300 UT XL 9-26 mg by Health (Wellbutrin 00:00: mouth 1 XL) 300 MG 00 (one) time 24 hr each day. tablet busPIRone Yes UT (Buspar) 10 9-26 Health MG tablet 00:00: 00 methocarbam 0 Yes UT ol 9-26 Health (Robaxin) 00:00: 500 MG 00 tablet eszopiclone Yes UT (Lunesta) 1 9-26 Health MG tablet 00:00: 00 losartan 2021-0 Yes UT (Cozaar) 50 9-26 Health MG tablet 00:00: 00 atorvastati 2021-0 Yes UT n (Lipitor) 9-26 Health 10 MG 00:00: tablet 00 buPROPion 0 Yes 300mg QD Take 300 UT XL 9-26 mg by Health (Wellbutrin 00:00: mouth 1 XL) 300 MG 00 (one) time 24 hr each day. tablet busPIRone Yes UT (Buspar) 10 9-26 Health MG tablet 00:00: 00 methocarbam 0 Yes UT ol 9-26 Health (Robaxin) 00:00: 500 MG 00 tablet eszopiclone Yes UT (Lunesta) 1 9-26 Health MG tablet 00:00: 00 amLODIPine 0 Yes UT (Norvasc) 5 9-12 Health MG tablet 00:00: 00 Xigduo XR 2021-0 Yes UT 5-1000 MG 9-12 Health 00:00: 00 Euthyrox 50 2021-0 Yes UT MCG tablet 9-12 Health 00:00: 00 meloxicam 2021-0 Yes UT (Mobic) 15 9-12 Health MG tablet 00:00: 00 amLODIPine 2021-0 Yes UT (Norvasc) 5 9-12 Health MG tablet 00:00: 00 Xigduo XR 2021-0 Yes UT 5-1000 MG 9-12 Health 00:00: 00 Euthyrox 50 2021-0 Yes UT MCG tablet 9-12 Health 00:00: 00 meloxicam 2021-0 Yes UT (Mobic) 15 9-12 Health MG tablet 00:00: 00 pregabalin 2021-0 Yes UT (Lyrica) 50 7-18 Health MG capsule 00:00: 00 pregabalin 2-0 2- No UT (Lyrica) 50 7-18 10-10 Health MG capsule 00:00: 00:00 00 :00 gabapentin 2021-0 Yes 1{capsu 1 capsule. UT (Neurontin) 3-16 le} Health 300 MG 00:00: capsule 00 fexofenadin 2019-0 Yes [id number] 180mg Take 1 Univers e 180 mg 2-01 tablet by ity of tablet 00:00: mouth 2 [place] 00 (two) Medical times Branch daily. benzonatate Yes [id number] 200mg Take 1 Univers 200 mg 2-01 capsule by ity of capsule 00:00: mouth 3 (three) Medical times Branch daily as needed for Cough. fexofenadin Yes [id number] 180mg Take 1 Univers e 180 mg 2-01 tablet by ity of tablet 00:00: mouth 2 (two) Medical times Branch daily. benzonatate Yes [id number] 200mg Take 1 Univers 200 mg 2-01 capsule by ity of capsule 00:00: mouth 3 (three) Medical times Branch daily as needed for Cough. fexofenadin Yes [id number] 180mg Take 1 Univers e 180 mg 2-01 tablet by ity of tablet 00:00: mouth 2 (two) Medical times Branch daily. benzonatate Yes [id number] 200mg Take 1 Univers 200 mg 2-01 capsule by ity of capsule 00:00: mouth 3 (three) Medical times Branch daily as needed for Cough. fexofenadin Yes [id number] 180mg Take 1 Univers e 180 mg 2-01 tablet by ity of tablet 00:00: mouth 2 (two) Medical times Branch daily. benzonatate Yes [id number] 200mg Take 1 Univers 200 mg 2-01 capsule by ity of capsule 00:00: mouth 3 (three) Medical times Branch daily as needed for Cough. traZODONE Yes 50mg 50 mg. Univer s 50 mg 1-16 Take 1-2 ity of tablet 20:10: tablets PR Medical insomnia Branch traZODONE Yes 50mg 50 mg. Univer s 50 mg 1-16 Take 1-2 ity of tablet 14:10: tablets PR Medical insomnia Branch traZODONE Yes 50mg 50 mg. Univer s 50 mg 1-16 Take 1-2 ity of tablet 14:10: tablets PR Medical insomnia Branch traZODONE Yes 50mg 50 mg. Univer s 50 mg 1-16 Take 1-2 ity of tablet 14:10: tablets PR Medical insomnia Branch fluticasone 2019-0 Yes [id number] 1{spray Use 1 Univers 50 1-16 } [place] ity of mcg/actuati 00:00: each [place] on nasal 00 nostril 2 Medica l spray (two) Branch times daily. benzonatate 2019-0 Yes [id number] 100mg Take 1 Univers (TESSALON 1-16 capsule by ity of [place]) 100 00:00: mouth 3 [place] as mg capsule 00 (three) Medica l times Branch daily. naproxen 2019-0 Yes [id number] 500mg Take 1 Un jayro 500 mg 1-16 tablet by ity of tablet 00:00: mouth 2 [place] (two) Medical times Branch daily with meals. fluticasone 2018- Yes [id number] 1{spray Use 1 Univers 50 1-16 } [place] ity of mcg/actuati 00:00: each on nasal 00 nostril 2 Medica l spray (two) Branch times daily. benzonatate 2018-0 Yes [id number] 100mg Take 1 Univers (TESSALON 1-16 capsule by ity of [place]) 100 00:00: mouth 3 [place] as mg capsule 00 (three) Medica l times Branch daily. naproxen 2018- Yes [id number] 500mg Take 1 Un jayro 500 mg 1-16 tablet by ity of tablet 00:00: mouth 2 [place] (two) Medical times Branch daily with meals. fluticasone 2018- Yes [id number] 1{spray Use 1 Univers 50 1-16 } [place] ity of mcg/actuati 00:00: each on nasal 00 nostril 2 Medica l spray (two) Branch times daily. benzonatate 2019-0 Yes [id number] 100mg Take 1 Univers (TESSALON 1-16 capsule by ity of [place]) 100 00:00: mouth 3 [place] as mg capsule 00 (three) Medica l times Branch daily. naproxen 2018-0 Yes [id number] 500mg Take 1 Un jayro 500 mg 1-16 tablet by ity of tablet 00:00: mouth 2 [place] (two) Medical times Branch daily with meals. fluticasone 2018- Yes [id number] 1{spray Use 1 Univers 50 1-16 } [place] ity of mcg/actuati 00:00: each [place] on nasal 00 nostril 2 Medica l spray (two) Branch times daily. benzonatate 2019-0 Yes [id number] 100mg Take 1 Univers (TESSALON 1-16 capsule by ity of [place]) 100 00:00: mouth 3 [place] as mg capsule 00 (three) Medica l times Branch daily. naproxen 2019-0 Yes [id number] 500mg Take 1 Un jayro 500 mg 1-16 tablet by ity of tablet 00:00: mouth 2 [place] 00 (two) Medical times Branch daily with meals. DULoxetine 2018-0 Yes 60mg Take 60 mg U nivers 60 mg 1-12 by mouth ity of capsule 00:00: daily. Medical Branch DULoxetine 0 Yes 60mg Take 60 mg U nivers 60 mg 1-12 by mouth ity of capsule 00:00: daily. Medical Branch DULoxetine 0 Yes 60mg Take 60 mg U nivers 60 mg 1-12 by mouth ity of capsule 00:00: daily. Medical Branch DULoxetine 0 Yes 60mg Take 60 mg U nivers 60 mg 1-12 by mouth ity of capsule 00:00: daily. Medical Branch metformin 2018-0 Yes 500mg Take 500 Uni vers ER 500 mg 1-07 mg by ity of 24 hr 00:00: mouth [place] tablet 00 daily. Medical Branch lisinopril 0 Yes 20mg Take 20 mg U nivers 20 mg 1-07 by mouth ity of tablet 00:00: daily. Medical Branch levothyroxi 2018-0 Yes 50ug Take 50 Uni vers ne 50 mcg 1-07 mcg by ity of tablet 00:00: mouth [place] 00 every Medical morning. Branch metformin 2018-0 Yes 500mg Take 500 Uni vers ER 500 mg 1-07 mg by ity of 24 hr 00:00: mouth [place] tablet 00 daily. Medical Branch lisinopril 0 Yes 20mg Take 20 mg U nivers 20 mg 1-07 by mouth ity of tablet 00:00: daily. Medical Branch levothyroxi 2018-0 Yes 50ug Take 50 Uni vers ne 50 mcg 1-07 mcg by ity of tablet 00:00: mouth [place] 00 every Medical morning. Branch metformin 2018-0 Yes 500mg Take 500 Uni vers ER 500 mg 1-07 mg by ity of 24 hr 00:00: mouth [place] tablet 00 daily. Medical Branch lisinopril Yes 20mg Take 20 mg U nivers 20 mg 1-07 by mouth ity of tablet 00:00: daily. [place] 00 Medical Branch levothyroxi Yes 50ug Take [...] by mouth ity of tablet 00:00: daily. [place] 00 Medical Branch levothyroxi Yes 50ug Take 50 Uni vers ne 50 mcg 1-07 mcg by ity of tablet 00:00: mouth [place] 00 every Medical morning. Branch atorvastati 2017-03 Yes 10mg Take 10 mg Univers n 10 mg 1-03 by mouth ity of tablet 00:00: at [place] 00 bedtime. Medical Branch atorvastati 2017-03 Yes 10mg Take 10 mg Univers n 10 mg 1-03 by mouth ity of tablet 00:00: at [place] 00 bedtime. Medical Branch atorvastati 2017-03 Yes 10mg Take 10 mg Univers n 10 mg 1-03 by mouth ity of tablet 00:00: at [place] 00 bedtime. Medical Branch atorvastati 2017-03 Yes 10mg Take 10 mg Univers n 10 mg 1-03 by mouth ity of tablet 00:00: at [place] [address] bedtime. Medical Branch ibuprofen Yes 400mg Take 2 Unive rs (MOTRIN IB) 6-09 tablets by it y of 200 mg 00:00: mouth [place] tablet 00 every 6 Medical (six) Branch hours as needed for Pain (scale 1-3) for up to 30 doses. cyclobenzap Yes 10mg Take 1 Univ ers rine 10 mg 6-09 tablet by ity of tablet 00:00: mouth 2 [place] 00 (two) Medical times Branch daily as needed for Muscle Spasms for up to 10 doses. ibuprofen Yes 400mg Take 2 Unive rs (MOTRIN [...] 1-3) for up to 30 doses. 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) Influenza, 2018-12-10 [facility]pleted [facility] injectable, 00:00:00 quadrivalent (afluria, fluzone) Influenza, 2018-12-10 Completed [facility] injectable, 00:00:00 quadrivalent (afluria, fluzone) influenza, influenza, 2018-12-10 Completed [facility] inject[facility], injectable, 00:00:00 Medical Grou p quadrivalent quadrivalent Vital Signs Vital Name Observation Time Observation Value Comments Source Systolic blood 2022-01-06 15:25:00 121 mm[Hg] [facility] pressure Diastolic blood 2022-01-06 15:25:00 86 mm[Hg] [facility] pressure Heart rate 2022-01-06 15:25:00 84 /min [facility] Body temperature 2022-01-06 15:25:00 36.78 Malika [facility] Body weight 2022-01-06 15:25:00 77.111 kg [facility] BMI 2022-01-06 15:25:00 30.11 kg/m2 [facility] Body temperature 2022-01-01 13:36:00 36.06 Malika [facility] Body height 2022-01-01 13:36:00 160 cm [facility] Body weight 2022-01-01 13:36:00 77.111 kg [facility] BMI 2022-01-01 13:36:00 30.11 kg/m2 [facility] Systolic blood 2022-01-01 13:36:00 136 mm[Hg] [facility] pressure Diastolic blood 2022-01-01 13:36:00 83 mm[Hg] [facility] pressure Heart rate 2022-01-01 13:36:00 102 /min [facility] BP Diastolic 2019-08-05 00:00:00 90 mm[Hg] [facility] Height 2019-08-05 00:00:00 63 [in_i] [facility] BMI (Body Mass 2019-08-05 00:00:00 31 kg/m2 [facility] Medical Index) Group BP Systolic 2019-08-05 00:00:00 142 mm[Hg] [facility] Body Weight 2019-08-05 00:00:00 2801.6 [oz_av] [facility] BP Diastolic 2019-04-05 00:00:00 98 mm[Hg] [facility] Height 2019-04-05 00:00:00 63 [in_i] [facility] BMI (Body Mass 2019-04-05 00:00:00 30.8 kg/m2 [facility] Medical Index) Group BP Systolic 2019-04-05 00:00:00 150 mm[Hg] [facility] Body Weight 2019-04-05 00:00:00 2784 [oz_av] [facility] BP Diastolic 2019-02-28 00:00:00 94 mm[Hg] [facility] Height 2019-02-28 00:00:00 63 [in_i] [facility] BMI (Body Mass 2019-02-28 00:00:00 27.1 kg/m2 [facility] Medical Index) Group BP Systolic 2019-02-28 00:00:00 152 mm[Hg] [facility] Body Weight 2019-02-28 00:00:00 2450 [oz_av] [facility] BP Diastolic 2018-07-19 00:00:00 80 mm[Hg] [facility] Height 2018-07-19 00:00:00 63 [in_i] [facility] BMI (Body Mass 2018-07-19 00:00:00 30.2 kg/m2 [facility] BP Systolic 2018-07-19 00:00:00 140 mm[Hg] [facility] Body Weight 2018-07-19 00:00:00 2729.6 [oz_av] [facility] Procedures Procedure Date / Time Performing Clinician Source Performed XR CERVICAL SPINE COMPLETE 2021-10-21 17:22:00 Brandyn Arrieta [facility] W FLEX EXT [place] ASSIGNMENT OF BENEFITS 2021-04-28 22:52:49 Doctor Unassigned, Un [facility] [place] [facility] unlisted imaging order 2019-04-05 00:00:00 [facility] Hysterectomy 2008-03-30 00:00:00 [facility] Tubal Ligation 1989-03-30 00:00:00 [facility] Cholecystectomy [facility] Tonsillectomy [facility] Plan of Care Planned Activity Planned Date Details Comments Source Future Scheduled Test 2022-03-17 HEPATITIS B VACCINES [facility] 20:37:20 (1 of 3 - 3-dose series) [code = HEPATITIS B VACCINES (1 of 3 - 3-dose series)] Future Scheduled Test 2022-03-17 Hepatitis C Method [facility] 20:37:20 screening (procedure) [code = 791687770] Future Scheduled Test 2022-03-17 Screening for [facility] 20:37:20 malignant neoplasm of cervix (procedure) [code = 611609455] Future Scheduled Test 2022-03-17 BREAST CANCER [facility] 20:37:20 SCREENING [code = BREAST CANCER SCREENING] Future Scheduled Test 2022-03-17 COLONOSCOPY Method [facility] 20:37:20 SCREENING [code = COLONOSCOPY SCREENING] Future Scheduled Test 2022-03-17 SHINGLES VACCINES (1 [facility] 20:37:20 of 2) [code = SHINGLES VACCINES (1 of 2)] Future Scheduled Test 2022-03-17 COVID-19 VACCINE (3 [facility] 20:37:20 - Booster for Moderna series) [code = COVID-19 VACCINE (3 - Booster for Moderna series)] Future Scheduled Test 2022-03-17 INFLUENZA VACCINE [facility] 20:37:20 [code = INFLUENZA VACCINE] Future Scheduled Test 2022-03-17 HEPATITIS B VACCINES [facility] 20:37:20 (1 of 3 - 3-dose series) [code = HEPATITIS B VACCINES (1 of 3 - 3-dose series)] Future Scheduled Test 2022-03-17 Hepatitis C Method [facility] 20:37:20 screening (procedure) [code = 113945765] Future Scheduled Test 2022-03-17 Screening for [facility] 20:37:20 malignant neoplasm of cervix (procedure) [code = 364135851] Future Scheduled Test 2022-03-17 BREAST CANCER [facility] 20:37:20 SCREENING [code = BREAST CANCER SCREENING] Future Scheduled Test 2022-03-17 COLONOSCOPY Method [facility] 20:37:20 SCREENING [code = COLONOSCOPY SCREENING] Future Scheduled Test 2022-03-17 SHINGLES VACCINES (1 [facility] 20:37:20 of 2) [code = SHINGLES VACCINES (1 of 2)] Future Scheduled Test 2022-03-17 COVID-19 VACCINE (3 [facility] 20:37:20 - Booster for Moderna series) [code = COVID-19 VACCINE (3 - Booster for Moderna series)] Future Scheduled Test 2022-03-17 INFLUENZA VACCINE [facility] [place] [facility] 20:37:20 [code = INFLUENZA VACCINE] Future Scheduled Test 2021-12-27 HEPATITIS B VACCINES [facility] 10:31:06 (1 of 3 - 3-dose series) [code = HEPATITIS B VACCINES (1 of 3 - 3-dose series)] Future Scheduled Test 2021-12-27 Hepatitis C Method [facility] 10:31:06 screening (procedure) [code = 659448927] Future Scheduled Test 2021-12-27 Screening for [facility] 10:31:06 malignant neoplasm of cervix (procedure) [code = 214575095] Future Scheduled Test 2021-12-27 BREAST CANCER [facility] 10:31:06 SCREENING [code = BREAST CANCER SCREENING] Future Scheduled Test 2021-12-27 COLONOSCOPY Method [facility] 10:31:06 SCREENING [code = COLONOSCOPY SCREENING] Future Scheduled Test 2021-12-27 SHINGLES VACCINES (1 [facility] 10:31:06 of 2) [code = SHINGLES VACCINES (1 of 2)] Future Scheduled Test 2021-12-27 COVID-19 VACCINE (3 [facility] 10:31:06 - Booster for Moderna series) [code = COVID-19 VACCINE (3 - Booster for Moderna series)] Future Scheduled Test 2021-12-27 INFLUENZA VACCINE [facility] [place] [facility] 10:31:06 [code = INFLUENZA VACCINE] Diagnostic Test 2019-08-05 culture, wound [code [facility] Pending 00:00:00 = culture, wound] Group Instructions [facility] Encounters Start End Encounter Admission Attending Care Care Encounter Source Date/Time Date/Time Type Type Clinicians Facility Department ID 2022-03-20 2022-03-21 Inpatient ADALID Kamara [facility] MEDI.01 [id number] [facility] 09:55:00 13:40:[address] 2022-01-06 2022-01-06 Office LILO DERAS 6400 [id number] [facility] 10:00:00 10:00:[address] [id number] Health 9.2.7.2.686 [id number] 2022-01-01 2022-01-01 Office Vic Martines [facility] 6400 [id number] MS 09:00:00 09:12:[address] 350.1.13.58 Health 9.2.7.2.686 [id number] 2021-12-27 2021-12-27 Outpatient R UNKNOWN, [facility] [id number] Univers 10:31:03 23:59:[address] [facility] 2021-10-21 2021-10-21 [facility] Berny, 1.2.840.1 [id number] Methodi 11:30:00 23:59:00 Encounter Brandyn [id number] 699 s amber [place] 3.430.2.7 Hospi ta .3.259452 l .8 2021-10-21 2021-10-21 [facility], 1.2.840.1 [id number] Methodi 11:30:00 23:59:00 Encounter Brandyn [id number] 699 s t [place] 3.430.2.7 Hospi ta .[id number] l .8 2021-10-21 2021-10-21 Transcribe [facility], 1.2.840.1 [id number] Methodi 00:00:00 00:00:00 Orders Brandyn [id number] [place] 3.430.2.7 Hospi ta .3.883379 l .8 2021-10-21 2021-10-21 Travel 1.2.840.1 [id number] Methodi 00:00:00 00:00:[id number] 3.430.2.7 0.2.7.3.698 Ho spita .3.245408 084.8 l .8 2021-10-21 2021-10-21 Transcribe [facility], 1.2.840.1 [id number] Methodi 00:00:00 00:00:00 Orders Brandyn [id number] [place] 3.430.2.7 Hospi ta .[id number] l .8 2021-10-21 2021-10-21 Travel 1.2.840.1 [id number] [id number] Methodi 00:00:00 00:00:[id number] 3.430.2.7 0.2.7.3.698 Ho spita .3.027169 084.8 l .8 2021-09-20 2021-09-20 Outpatient R MARK RIVERA [facility] [id number] Univers 14:00:00 14:00:00 MARK RIVERA [facility] 2021-09-04 2021-09-04 Outpatient R LIYAH [facility] [id number] Univers 14:00:00 14:00:00 MARINA itharrison [facility] 2021-08-07 2021-08-07 Outpatient R LIYAH [facility] [id number] Univers 14:00:00 14:00:00 MARINA ity [facility] 2021-07-15 2021-07-15 Outpatient R MARK RIVERA [facility] [id number] Univers 13:00:00 13:00:00 MARK RIVERA ity [facility] 2021-04-29 2021-04-29 Telephone Only, Jordon [facility] 1.2.840.114 [id number] Univers 00:00:00 00:00:00 Db Test HEALTH 350.1.13.10 it y of [place] 4.2.7.2.686 Tashi as DOROTEO?BLEA [id number] [address] OFFICE [facility] 2021-04-28 2021-04-28 Laboratory Only, Jordon Db Test [facility] 1.2.8 [id number] [id number] Univers 17:30:00 17:45:00 [facility]1 3.10 ity of [place] 4.2.7.2.686 Tashi as DOROTEO?BLEA [id number] [address] OFFICE [facility] 2021-04-28 2021-04-28 Outpatient R BATOOL [facility] [id number] Univers 17:30:00 17:37:07 TYLER Marrero it y of [facility] 2021-04-28 2021-04-28 Orders Doctor PAYNE [id number] Univers 00:00:00 00:00:00 Only Unassigned, ABUNDIO [id number] [facility] [id number] Tashi as [phone] [address] 2020-02-15 2020-02-15 Outpatient AlessandraAngel SCHILLING [facility] [place] 02:25:00 02:25:00 118 [facility] 2019-11-25 2019-11-25 Laboratory Lab, Adc Fam Pob I [facility] 1.2. [id number] Univers 13:18:55 13:38:55 Only Paz [facility] [id number] [facility] [id number] Tashi as Markell [phone] [address] Office [facility] 2019-11-25 2019-11-25 Outpatient Saige CINTRON [facility] [id number] Univers 13:00:00 13:00:00 PAZ [facility] 2019-08-06 2019-08-06 Outpatient Alessandra_M [facility] 9[place]- [place] 02:53:00 02:53:00 509 [facility] 2019-08-05 2019-08-05 Daniela Alessandra_M [facility] [place] - 9[place]- [place] 00:00:00 00:00:00 Disha Parker 508 da Alessandra [facility] Medical [employer]RI[employer]: [address] [place], [place] [id number] , Ph. 2019-04-05 2019-04-05 Lucrecia Mercedes [facility] [place] - [place] 00:00:00 00:00:00 Discovery Mago 107 da [employer]RI[employer]: 600 [facility] 201[facility] [address] , Ph. 2019-03-12 2019-03-12 Outpatient Mago [facility] [id number] 191 [place] 03:27:00 03:27:00 214 [facility] 2019-02-28 2019-02-28 Lucrecia [facility] [place] - 9[place]- [place] 00:00:00 00:00:00 Discovery Mago 202 da [employer] STOR[employer] DRIER: 600 [facility] 201, [facility] [address] , Ph. 2018-07-19 2018-07-19 Lucrecia [facility] [place] - 9471- [place] 00:00:00 00:00:00 Discovery Mago 422 da [employer] STOR[employer] DRIER: 600 [facility] 201[facility] [phone] , Ph. Results Test Description Test Time Test Comments Results Result Comments Source GLUCOSE BEDSIDE TESTING 2022-03-20 17:10:00 Test Item Value Reference Range Interpretation Comme nts GLUCOSE BEDSIDE TESTING (test code = GLUBED) 178 mg/dL 70-110 H GLUCOSE BEDSIDE [id number] 10:32:00 Test Item Value Reference Range Interpretation Comments GLUCOSE BEDSIDE TESTING (test code = 97 mg/dL 70-110 N GLUBED) PROTHROMBIN [id number] 11:21:00 Test Item Value Reference Range Interpretation Comments PT PATIENT (test 10.7 SECONDS 9.3-12.9 N code = PTP) INTERNATIONAL NORMAL 0.99 INR Unit 0.8-1.2 N TARGE T INR BY RATIO (test code = INDICATIO N Indication INR) INR1. Prophylax is of venous thrombos is 2.0 - 3.0 (orthoped ic surgery), Proph ylaxis of venous throm bosis (other than hig h-risk surgery), Treat ment of Deep Vein Thrombosis/Pulm onary Embolism, Preve ntion of systemic emb olism - Tissue heart va lves, Acute Myocardia l Infarction (to prevent systemic emboli sm), Valvular heart disease, Acute Myocardial Infa rction (to prevent sys temic embolism), Valv ular heart disease, Atrial Fibrillation, Bileaflet mecha nical valve in aortic position.2. Mec hanical prosthetic valv es (high risk), 2. 5 - 3.5 Presence of Lup us Anticoagulant o r Antiphospholipi d Antibodies, Pre vention of systemic em bolism - Acute Myocard ial Infarction (to prevent recurrent infar ct). THROMBOPLASTIN TIME [id number] 11:21:00 Test Item Value Reference Range Interpretation Comments THROMBOPLASTIN TIME PARTIAL 37.1 SECONDS 26-35 H (test code = PTT) COMPREHENSIVE METABOLIC [id number] 11:01:00 Test Item Value Reference Range Interpretation Comments SODIUM (test code 139 mmol/L 134-147 N = NA) POTASSIUM (test 3.5 mmol/L 3.4-5.0 N code = K) CHLORIDE (test 103 mmol/L 100-108 N code = CL) CARBON DIOXIDE 30 mmol/L 21-32 N (test code = CO2) ANION GAP (test 6.0 GAP calc 4.0-15.0 N code = GAP) GLUCOSE (test code 106 MG/DL 70-110 N = GLU) BLOOD UREA 16 MG/DL 7-18 N NITROGEN (test code = BUN) GLOMERULAR >=60 max >60 The Glomerular FILTRATION RATE estimate estGFR Filtratio n Rate is a (test code = GFR) calculated parameterbased on serum Creatinin e, patient age and sex. GFR valuesless than 60 mL/min/1.73 square meters are pavan cative ofChronic Kidne y Disease. Values less than 15 mL/min/1.73squa re meters indicate Kidney failure. The calculation for GFR is based on the CK D-EPI (2020) calculat ion. This formulais race indifferent and is the recommended formula for GFR by the National Kidney Foundation for Adults.The GFR will not calculate i f the sex is unknown or if thepatient's ag e is <18 years. CREATININE (test 0.5 MG/DL 0.6-1.0 L code = CREAT) TOTAL PROTEIN 8.9 G/DL 6.4-8.2 H (test code = PROT) ALBUMIN (test code 4.2 G/DL 3.4-5.0 N = ALB) GLOBULIN (test 4.7 GM/dL code = GLOB) ALBUMIN/GLOBULIN 0.9 RATIO 1.2-2.2 L RATIO (test code = A/G) CALCIUM (test code 9.4 MG/DL 8.5-10.1 N = CA) BILIRUBIN TOTAL 0.40 MG/DL 0.2-1.2 N (test code = BILT) SGOT/AST (test 15 Unit/L 15-37 N code = AST) SGPT/ALT (test 38 Unit/L 12-78 N code = ALT) ALKALINE 107 Unit/L 45-117 N PHOSPHATASE TOTAL (test code = ALKP) COVID 19 INHOUSE [id number] 10:44:00 Test Item Value Reference Range Interpretation Comments COVID 19 INHOUSE AG NEGATIVE Negative Per manu facturer, (test code = negative result s should [id number]) be treated aspr esumptive and, if inconsi stent with clinical signs andsymptoms or necessary for patient man agement, should betested with an alternative mol ecular assay. Negative resultsdo not preclude SA RS-CoV-2 infection and s hould not be usedas the s ole basis for patient man agement decisions. Nega tive results should be considered in t he context of apatient's r ecent exposures, hist ory, presence of cli nicalsigns and symptoms co nsistent with COVID-19. URINALYSIS [id number] 10:38:00 Test Item Value Reference Range Interpretation Comments UA GLUCOSE DIPSTICK (test 1+ mg/dL NEG code = DGLUU) UA BILIRUBIN DIPSTICK (test NEGATIVE mg/dL NEG code = BILU) UA KETONE DIPSTICK (test NEGATIVE mg/dL NEG code = KETU) UA SPECIFIC GRAVITY (test >=1.030 SG 1.005-1.030 A code = SGU) UA BLOOD DIPSTICK (test NEGATIVE mg/DL NEG code = SHELLIE) UA PH DIPSTICK (test code = 6.0 pH UNITS 5.0-7.0 ERIKA) UA PROTEIN DIPSTICK (test NEGATIVE mg/dL NEG code = PROU) UA UROBILINIOGEN DIPSTICK 0.2 mg/dL <2.0 (test code = URO) UA NITRITE DIPSTICK (test NEGATIVE SCREEN NEG code = GABRIELA) UA LEUKOCYTE ESTERASE NEGATIVE Leuk/mcL NEGATIVE DIPSTICK (test code = LEUU) Urine Specimen Type: Clean CatchUR HCG [id number] 10:38:00 Test Item Value Reference Range Interpretation Comments UR HCG QUAL (test code = HCGQLU) NEGATIVE NEGATIVE Urine Specimen Type: Clean CatchCBC W/AUTO [id number] 10:33:00 Test Item Value Reference Range Interpretation Comments WHITE BLOOD CELL (test code = 9.0 K/mm3 3.5-11.0 N WBC) RED BLOOD CELL (test code = 5.08 M/mm3 4.70-6.10 N RBC) HEMOGLOBIN (test code = HGB) 14.6 G/DL 10.4-14.9 N HEMATOCRIT (test code = HCT) 43.2 % 31.5-44.1 N MEAN CELL VOLUME (test code = 85.0 Fl 84.5-98.6 N MCV) MEAN CELL HGB (test code = MCH) 28.7 pg 27.0-34.2 N MEAN CELL HGB CONCETRATION 33.8 G/DL 31.5-34.0 N (test code = MCHC) RED CELL DISTRIBUTION WIDTH 12.4 SD 11.5-14.5 N (test code = RDW) PLATELET COUNT (test code = 339 K/mm3 150-450 N PLT) MEAN PLATELET VOLUME (test code 10.60 fL 7.0-10.5 H = MPV) NEUTROPHIL % (test code = NT%) 58.9 % 40-76 N IMMATURE GRANULOCYTE % (test 0.3 % 0.0-5.0 N code = IG%) LYMPHOCYTE % (test code = LY%) 34.1 % 20.5-51.1 N MONOCYTE % (test code = MO%) 5.3 % 1.7-9.3 N EOSINOPHIL % (test code = EO%) 1.0 % 0.0-6.0 N BASOPHIL % (test code = BA%) 0.4 % 0.0-2.0 N NUCLEATED RBC % (test code = 0.0 /100WBC% 0.0-1.0 N NRBC%) NEUTROPHIL # (test code = NT#) 5.3 K/mm3 1.8-7.6 N IMMATURE GRANULOCYTE # (test 0.03 x10 3/uL 0.00-0.03 N code = IG#) LYMPHOCYTE # (test code = LY#) 3.1 K/mm3 0.6-3.2 N MONOCYTE # (test code = MO#) 0.5 K/mm3 0.3-1.1 N EOSINOPHIL # (test code = EO#) 0.1 K/mm3 0.0-0.4 N BASOPHIL # (test code = BA#) 0.0 K/mm3 0.0-0.1 N NUCLEATED RBC # (test code = 0.0 K/mm3 0.0-0.1 N NRBC#) MANUAL DIFF REQUIRED (test code NO DIFF/SCN CRITERIA = MDIFF) - XR CHEST 1 [id number] 10:28:00 [facility] : 1965 Sex: F Name: HOLLI MCKEON Dillon : 1965 Age/S: 56 / F [address] [place] Unit #: [id number] Loc: [place] [address] Phys: Rc Hernandez MD Acct: [id number] Dis Date: Status: PRE [facility] PHONE #: [phone] Exam Date: 03/18/2022 1024 FAX #: Reason: PREOP EXAMS: CPT: [id number] XR CHEST 1 V 22630 Fluoro Time: DAP (Gy m2): Air Kerma (mGy): LOCATION: B2 EXAM: - XR CHEST 1 V HISTORY: PREOP COMPARISON: None FINDINGS: The lungs are clear. No pleural effusion or pneumothorax. The cardiac silhouette is within normal limits. No acute osseous abnormalities. IMPRESSION: No acute cardiopulmonary disease. at 1028 Reported and signed by: Kenton Gerardo M.D. CC: Kiera Kamara MD; Rc Hernandez MD PAGE 1 Signed Report Name: HOLLI MCKEON Dillon : 1965 Age/S: 56 / F [address] [facility] Unit #: [id number] Loc: [place] [address] Phys: Rc Hernandez MD Acct: [id number] Dis Date: Status: PRE [facility] PHONE #: [phone] Exam Date: 03/18 1024 FAX #: Reason: PREOP EXAMS: CPT: [id number] XR CHEST 1 V [id number] Fluoro Time: DAP (Gy m2): Air Kerma (mGy): (Continued) Technologist: Spencer Patel, RT(R)(CT) Trnscb Date/Time: 03/18/2022 (1028) [email or web address] Orig Print D/T: S: 03/18/2022 (1031) PAGE 2 Signed ReportUrinalysis macro (dipstick) panel - Urine 2019-04-05 14:24:00 Test Item Value Reference Range Interpretation Comments Leukocytes (test code = Negative Leukocytes) Nitrite (test code = negative Nitrite) Urobilinogen (test code = .2 Urobilinogen) Protein (test code = Negative Protein) pH (test code = pH) 5.5 Blood (test code = Blood) Hemolyzed: Trace Specific [place] (test code 1.020 = Specific [place]) Ketone (test code = Ketone) Negative Bilirubin (test code = Negative Bilirubin) Glucose (test code = 500 Glucose) Appearance (test code = Clear Appearance) Color (test code = Color) Yellow [facility]
[2022-03-23] MEDS ORDERED: NA CHLORIDE 0.9% 1,000 ML ONE (07:39)
[2022-03-23] MEDS ORDERED: ONDANSETRON 4 MG/2 ML VIAL ONE (07:39)
[2022-03-23] MEDS ORDERED: MORPHINE 4 MG/ML SYR ONE (07:39)
[2022-03-23 07:59] LABS: Urine Blood Negative (Negative); Urine Glucose 3+ (Negative); Urine Protein Negative (Negative); Urine pH 7.5 (5.0-7.0)
[2022-03-23 08:14] LABS: Urine Bacteria None Seen /HPF (<20); Urine RBC <5 /HPF (None Seen)
[2022-03-23] MEDS ORDERED: NA CHLORIDE 0.9% 100 ML IV ONE (08:15)
[2022-03-23] MEDS ORDERED: PIPERACIL/TAZO 3.375 GM VIAL IV ONE (08:15)
[2022-03-23 08:23] LABS: Hematocrit 38.8 % (36.0-45.0); Lymphocytes % 29.4 % (15.3-44.8); MCV 86.5 fL (80-100); MPV 8.9 fL (7.6-11.3); RBC Red Blood Cell Count 4.49 M/uL (3.86-4.86)
[2022-03-23 08:43] LABS: Albumin 3.4 g/dL (3.4-5.0); Bilirubin Total 0.8 mg/dL (0.2-1.0); Potassium 3.9 mmol/L (3.5-5.1); Protein, Total 7.5 g/dL (6.4-8.2)
--- NOTE | 2022-03-23 09:31 | RAD REPORT ---
EXAM DESCRIPTION: CTAbdomen Pelvis W Contrast - 03/23/2022 9:21 am CLINICAL HISTORY: Abdominal pain. Abdominal pain, post-op COMPARISON: No comparisons TECHNIQUE: Biphasic CT imaging of the abdomen and pelvis was performed with 100 ml non-ionic IV cont rast. All CT scans are performed using dose optimization technique as appropriate and may include automated exposure control or mA/KV adjustment according to patient size. FINDINGS: The lung bases are clear. The liver demonstrates diffuse fatty infiltration. Cholecystectomy. Spleen, pancreas, adrenal glands and kidneys are within normal limits. No bowel obstruction, free air, free fluid or abscess. Moderate stool colon. The appendix is normal. No evidence of significant lymphadenopathy. There is presumed inflammatory fat stranding seen in the region of the vaginal cuff without abscess o r hematoma. No suspicious bony findings. IMPRESSION: Mild inflammatory fat stranding seen in the inferior pelvis surrounding the vaginal cuff . No abscess or hematoma. Diffuse fatty liver.
--- NOTE | 2022-03-23 09:54 | ER ---
Nurse's Notes [facility] Name: Gina Meek Age: 56 yrs Sex: Female : 1965 Arrival Date: 03/23/2022 Time: 06:51 Bed 5 Private MD: Diagnosis: Abdominal tenderness;Other acute postprocedural pain-bladder lift 03/20/22 Presentation: 03/23 07:05 Chief complaint: Patient states: had pelvic floor repair sx 03/20/22. Pt reports aa5 increased abd pain and vaginal pain since yesterday. Pt also reports vaginal spotting and reports she currently has Nj in place. Surgery was completed by Dr. Sterling at [facility]. 07:05 Coronavirus screen: At this time, the client does not indicate any symptoms associated aa5 with coronavirus-19. Ebola Screen: Patient denies travel to an Ebola-affected area in the 21 days before illness onset. Initial Sepsis Screen: Does the patient meet any 2 criteria? HR > 90 bpm. Does the patient have a suspected source of infection? No. Patient's initial sepsis screen is negative. Risk Assessment: Do you want to hurt yourself or someone else? Patient reports no desire to harm self or others. Onset of symptoms was March 22, 2022. 07:05 Method Of Arrival: Ambulatory aa5 07:05 Acuity: CRYSTAL 3 aa5 Triage Assessment: 07:20 General: Appears distressed, uncomfortable, Behavior is cooperative, appropriate for bp age, anxious. Pain: Complains of pain in pelvis. EENT: No deficits noted. Neuro: Level of Consciousness is awake, alert, obeys commands, Oriented to Appropriate for age. Cardiovascular: No deficits noted. Respiratory: No deficits noted. GI: No signs and/or symptoms were reported involving the gastrointestinal system. : Reports pain in suprapubic area vaginal bleeding that is spotty. Derm: No deficits noted. Musculoskeletal: No deficits noted. Historical: - Allergies: 07:16 No Known Allergies; aa5 - PMHx: 07:16 diabetes mellitus; Hypertensive disorder; Hypothyroidism; aa5 - PSHx: 07:16 Partial Hysterectomy; Tonsillectomy; Tubal Ligation; Neck; Cholecystectomy; aa5 07:17 Pelvic floor repair (for vaginal and bladder prolapse); aa5 - Immunization history:: Adult Immunizations unknown. - Social history:: Smoking status: Patient denies any tobacco usage or history of. - Family history:: not pertinent. Screenin:20 [facility] ED Fall Risk Assessment (Adult) History of falling in the last 3 months, bp including since admission No falls in past 3 months (0 pts). Abuse screen: Denies threats or abuse. Denies injuries from another. Nutritional screening: No deficits noted. Tuberculosis screening: No symptoms or risk factors identified. Assessment: 07:20 General: SEE TRIAGE NOTE. bp 08:23 Reassessment: Patient appears in no apparent distress at this time. Patient states bp symptoms have improved. 09:42 Reassessment: PT RETURNED FROM CT. bp 10:28 Reassessment: PT DC HOME WITH FAMILY. bp Vital Signs: 07:05 BP 157 / 94; Pulse 98; Resp 18 S; Temp 97.6(TE); Pulse Ox 100% on R/A; Weight 74.84 kg aa5 (R); Height 5 ft. 3 in. (160.02 cm) (R); Pain 8/10; 08:23 BP 126 / 80; Pulse 83; Resp 16; Pulse Ox 97% ; bp 09:39 BP 94 / 58; Pulse 77; Resp 20; Pulse Ox 97% ; bp 10:19 BP 95 / 54; Pulse 77; Resp 16; Pulse Ox 98% ; bp 07:05 Body Mass Index 29.23 (74.84 kg, 160.02 cm) aa5 ED Course: 06:51 Patient arrived in ED. ja2 07:05 Michael Solo MD is Attending Physician. ricardo 07:05 Arm band placed on Patient placed in an exam room, on a stretcher. aa5 07:16 Triage completed. aa5 07:20 Patient has correct armband on for positive identification. Bed in low position. Call bp light in reach. Side rails up X2. 07:27 Dave Duff, WAYNE is Primary Nurse. bp 07:50 Inserted saline lock: 22 gauge in right forearm, using aseptic technique. bp 09:09 Inserted saline lock: 22 gauge in left antecubital area, using aseptic technique. Blood bp collected. 09:23 CT Abd/Pelvis - IV Contrast Only In Process Unspecified. EDMS 09:51 Kiera Kamara MD is Referral Physician. ricardo 10:28 No provider procedures requiring assistance completed. IV discontinued, intact, bp bleeding controlled, No redness/swelling at site. Pressure dressing applied. Administered Medications: 07:50 Drug: NS 0.9% 1000 ml Route: IV; Rate: 1 bolus; Site: right forearm; bp 10:20 Follow up: IV Status: Completed infusion; IV Intake: 1000ml bp 07:50 Drug: Zofran (Ondansetron) 4 mg Route: IVP; Site: right forearm; bp 08:04 Follow up: Response: No adverse reaction bp 07:50 Drug: morphine 4 mg Route: IVP; Infused Over: 4 mins; Site: right forearm; bp 08:04 Follow up: Response: Pain is decreased bp 08:15 Drug: Zosyn (piperacillin-tazobactam) 3.375 grams Route: IVPB; Infused Over: 60 mins; bp Site: right forearm; 10:20 Follow up: IV Status: Completed infusion; IV Intake: 100ml bp Medication: 07:20 VIS not applicable for this client. bp Intake: 10:20 IV: 100ml; Total: 100ml. bp 10:20 IV: 1000ml; Total: 1100ml. bp Outcome: 09:53 Discharge ordered by . ricardo 10:28 Discharged to home ambulatory, with family. bp 10:28 Condition: stable 10:28 Discharge instructions given to patient, family, Instructed on discharge instructions, follow up and referral plans. medication usage, Demonstrated understanding of instructions, follow-up care, medications, Prescriptions given X 3. 10:29 Patient left the ED. bp Signatures: Dispatcher [employer] EDMS Michael Solo MD MD cha Calderon, Audri, RN RN aa5 Dave Duff, WAYNE RN Autumn Isbell Corrections: (The following items were deleted from the chart) 09:54 07:05 Chief complaint: Patient states: had pelvic floor repair sx 03/21/22. Pt reports aa5 increased abd pain and vaginal pain since yesterday. Pt also reports vaginal spotting and reports she currently has Nj in place. Surgery was completed by Dr. Sterling at [facility]. aa5 10:29 10:28 Discharge instructions given to patient, family, Instructed on discharge bp instructions, follow up and referral plans. Demonstrated understanding of instructions, follow-up care, bp
--- NOTE | 2022-03-23 09:54 | EDPHYS ---
Physician Documentation [facility] Name: Gina Meek Age: 56 yrs Sex: Female : 1965 Arrival Date: 03/23/2022 Time: 06:51 Bed 5 Private MD: HUI Physician Michael Solo HPI: 03/23 07:51 This 56 yrs old Female presents to ER via Ambulatory with complaints of Post ricardo Surgical Pain. 07:51 The patient presents with abdominal pain in the lower abdomen, right lower quadrant, in ricardo the left lower quadrant. Onset: The symptoms/episode began/occurred 3 day(s) ago. The patient presents with pelvic pain. Onset: The symptoms/episode began/occurred 3 day(s) ago. Modifying factors: The symptoms are alleviated by nothing, remaining still, the symptoms are aggravated by movement. Associated signs and symptoms: The patient has no apparent associated signs or symptoms. Severity of symptoms: At their worst the symptoms were moderate, severe, in the emergency department the symptoms are unchanged. The patient is not sexually active. Historical: - Allergies: 07:16 No Known Allergies; aa5 - PMHx: 07:16 diabetes mellitus; Hypertensive disorder; Hypothyroidism; aa5 - PSHx: 07:16 Partial Hysterectomy; Tonsillectomy; Tubal Ligation; Neck; Cholecystectomy; aa5 07:17 Pelvic floor repair (for vaginal and bladder prolapse); aa5 - Immunization history:: Adult Immunizations unknown. - Social history:: Smoking status: Patient denies any tobacco usage or history of. - Family history:: not pertinent. ROS: 07:51 Constitutional: Negative for fever, chills, and weight loss, Eyes: Negative for injury, ricardo pain, redness, and discharge, ENT: Negative for injury, pain, and discharge, Neck: Negative for injury, pain, and swelling, Cardiovascular: Negative for chest pain, palpitations, and edema, Respiratory: Negative for shortness of breath, cough, wheezing, and pleuritic chest pain, Back: Negative for injury and pain, : Negative for injury, bleeding, discharge, and swelling, MS/Extremity: Negative for injury and deformity, Skin: Negative for injury, rash, and discoloration, Neuro: Negative for headache, weakness, numbness, tingling, and seizure, Psych: Negative for depression, anxiety, suicide ideation, homicidal ideation, and hallucinations, Allergy/Immunology: Negative for hives, rash, and allergies, Endocrine: Negative for neck swelling, polydipsia, polyuria, polyphagia, and marked weight changes, Hematologic/Lymphatic: Negative for swollen nodes, abnormal bleeding, and unusual bruising. 07:51 Abdomen/GI: Positive for abdominal pain, of the suprapubic area, right lower quadrant and left lower quadrant. 07:51 : Positive for pelvic pain. Exam: 07:51 Constitutional: This is a well developed, well nourished patient who is awake, alert, ricardo and in no acute distress. Head/Face: Normocephalic, atraumatic. Eyes: Pupils equal round and reactive to light, extra-ocular motions intact. Lids and lashes normal. Conjunctiva and sclera are non-icteric and not injected. Cornea within normal limits. Periorbital areas with no swelling, redness, or edema. ENT: Nares patent. No nasal discharge, no septal abnormalities noted. Tympanic membranes are normal and external auditory canals are clear. Oropharynx with no redness, swelling, or masses, exudates, or evidence of obstruction, uvula midline. Mucous membranes moist. Neck: Trachea midline, no thyromegaly or masses palpated, and no cervical lymphadenopathy. Supple, full range of motion without nuchal rigidity, or vertebral point tenderness. No Meningismus. Chest/axilla: Normal chest wall appearance and motion. Nontender with no deformity. No lesions are appreciated. Cardiovascular: Regular rate and rhythm with a normal S1 and S2. No gallops, murmurs, or rubs. Normal PMI, no JVD. No pulse deficits. Respiratory: Lungs have equal breath sounds bilaterally, clear to auscultation and percussion. No rales, rhonchi or wheezes noted. No increased work of breathing, no retractions or nasal flaring. Back: No spinal tenderness. No costovertebral tenderness. Full range of motion. Pelvic Exam: Normal external genitalia. Speculum exam with closed cervical os, no discharge or bleeding noted. Bimanual exam with normal adnexa, no adnexal or cervical motion tenderness. Normal uterus. Skin: Warm, dry with normal turgor. Normal color with no rashes, no lesions, and no evidence of cellulitis. MS/ Extremity: Pulses equal, no cyanosis. Neurovascular intact. Full, normal range of motion. Neuro: Awake and alert, GCS 15, oriented to person, place, time, and situation. Cranial nerves II-XII grossly intact. Motor strength 5/5 in all extremities. Sensory grossly intact. Cerebellar exam normal. Normal gait. Psych: Awake, alert, with orientation to person, place and time. Behavior, mood, and affect are within normal limits. 07:51 Abdomen/GI: Inspection: distension, that is mild, Bowel sounds: active, Palpation: moderate abdominal tenderness, in the suprapubic area, right lower quadrant and left lower quadrant, Liver: no appreciated palpable abnormalities, Hernia: not appreciated. 09:48 Abdomen/GI: Inspection: Bowel sounds: Palpation: moderate abdominal tenderness, in the ricardo right lower quadrant and left lower quadrant, no right upper quadrant pain. Vital Signs: 07:05 BP 157 / 94; Pulse 98; Resp 18 S; Temp 97.6(TE); Pulse Ox 100% on R/A; Weight 74.84 kg aa5 (R); Height 5 ft. 3 in. (160.02 cm) (R); Pain 8/10; 08:23 BP 126 / 80; Pulse 83; Resp 16; Pulse Ox 97% ; bp 09:39 BP 94 / 58; Pulse 77; Resp 20; Pulse Ox 97% ; bp 10:19 BP 95 / 54; Pulse 77; Resp 16; Pulse Ox 98% ; bp 07:05 Body Mass Index 29.23 (74.84 kg, 160.02 cm) aa5 MDM: 07:05 Patient medically screened. ricardo 07:55 Data reviewed: vital signs, nurses notes, lab test result(s), radiologic studies, CT ricardo scan. Data interpreted: quality assurance monitor: rate is 98 beats/min, rhythm is regular, Pulse oximetry: on room air. Counseling: I had a detailed discussion with the patient and/or guardian regarding: the historical points, exam findings, and any diagnostic results supporting the discharge/admit diagnosis, lab results, radiology results. 03/23 07:33 Order name: CBC with Diff; Complete Time: 08:39 [facility] 03/23 07:33 Order name: CMP; Complete Time: 09:00 [facility] 03/23 07:33 Order name: Lipase; Complete Time: 09:00 [facility] 03/23 07:33 Order name: Urine Microscopic Only; Complete Time: 08:39 [facility] 03/23 07:33 Order name: CT Abd/Pelvis - IV Contrast Only; Complete Time: 09:47 [facility] 03/23 07:59 Order name: Urine Dipstick-Ancillary; Complete Time: 08:14 [facility] 03/23 07:33 Order name: IV Saline Lock; Complete Time: 08:02 [facility] 03/23 07:33 Order name: Labs collected and sent; Complete Time: 08:20 [facility] 03/23 07:33 Order name: Urine Dipstick-Ancillary (obtain specimen); Complete Time: 08:02 [facility] Administered Medications: 07:50 Drug: NS 0.9% 1000 ml Route: IV; Rate: 1 bolus; Site: right forearm; bp 10:20 Follow up: IV Status: Completed infusion; IV Intake: 1000ml bp 07:50 Drug: Zofran (Ondansetron) 4 mg Route: IVP; Site: right forearm; bp 08:04 Follow up: Response: No adverse reaction bp 07:50 Drug: morphine 4 mg Route: IVP; Infused Over: 4 mins; Site: right forearm; bp 08:04 Follow up: Response: Pain is decreased bp 08:15 Drug: Zosyn (piperacillin-tazobactam) 3.375 grams Route: IVPB; Infused Over: 60 mins; bp Site: right forearm; 10:20 Follow up: IV Status: Completed infusion; IV Intake: 100ml bp Disposition Summary: 03/23/22 09:53 Discharge Ordered Location: Home ricardo Problem: new ricardo Symptoms: have improved ricardo Condition: Stable ricardo Diagnosis - Abdominal tenderness ricardo - Other acute postprocedural pain - bladder lift 03/20/22 ricardo Followup: ricardo - With: Private Physician - When: 1 - 2 days - Reason: Recheck today's complaints, Continuance of care, Re-evaluation by your physician Followup: ricardo - With: Kiera Kamara MD - When: 1 - 2 days - Reason: Recheck today's complaints, Continuance of care, Re-evaluation by your physician Discharge Instructions: - Discharge Summary Sheet ricardo - Abdominal Pain, Adult ricardo - Abdominal Pain, Adult, [id number] ricardo Forms: - Medication Reconciliation Form ricardo - Thank You Letter ricardo - Antibiotic Education ricardo - Prescription Opioid Use ricardo Prescriptions: - Zofran 4 mg Oral Tablet - take 1 tablet by ORAL route every 12 hours As needed; 20 tablet; Refills: 0, ricardo Product Selection Permitted - dicyclomine 20 mg Oral Tablet - take 1 tablet by ORAL route 4 times per day; 28 tablet; Refills: 0, Product ricardo Selection Permitted - Tylenol-Codeine #3 300 mg-30 mg Oral - take 2 tablet by ORAL route every 6 hours; 15 tablet; Refills: 0, Product ricardo Selection Permitted Signatures: Dispatcher [employer] Michael Rabago MD MD cha Calderon, Audri, RN RN aa5 Dave Duff RN RN bp
[2022-03-23 10:56] VITALS: TEMP 97.6
[2022-03-23 11:00] VITALS: BP 95/54; O2SAT 98
== END 2022-03-23 10:29 | disposition home or self-care (01) ==
LOC: ER 06:48
DX: G89.18 Other acute postprocedural pain (principal); Z98.890 Other specified postprocedural states; I10 Essential (primary) hypertension; E11.9 Type 2 diabetes mellitus without complications
CPT/HCPCS: 85025; 36415; 83690; 80053; 74177; Q9967; J2543; J7030; J2405; 81003; 81015; 96365; 96366; 96375; 99284